=== PATIENT | male | born 1985 | race Caucasian/White ===

== ENCOUNTER 2021-12-02 18:51 | Outpatient (REF) | payer MEDICAID, SELFPAY ==
[2021-12-02 20:00] LABS: HCT 34.4 % (40.0-50.0); HGB 11.5 g/dL (13.5-17.5); MCH 30.3 pg (27.0-33.0); MCHC 33.4 % (32.0-36.0); MCV 90.5 fL (80-95); MPV 13.5 fL (8.0-11.0); Platelet Count 134 10^3/uL (130-400); RDW-SD 49.6 fL
[2021-12-02 20:38] LABS: Albumin 3.4 g/dL (3.4-5.0); Alkaline Phosphatase 206 U/L (46-116); Anion Gap 6.3 mmol/L (3-11); BUN 16 mg/dL (7-18); Bilirubin, Total 0.8 mg/dL (0.2-1.0); CO2 31.7 mmol/L (21.0-32.0); CREATININE 1.2 mg/dL (0.70-1.30); Calcium 8.5 mg/dL (8.5-10.1); Chloride 99 mmol/L (98-107); Glucose 148 mg/dL (74-106); Potassium 4.8 mmol/L (3.5-5.1); Sodium 137 mmol/L (136-145); Total Protein 6.7 g/dL (6.4-8.2)
[2021-12-02 21:40] LABS: ALT 222 U/L (16-63); AST 293 U/L (15-37)
== END 2021-12-02 18:52 | disposition home or self-care (01) ==
LOC: LBN 18:51
PROVIDERS: Visit Provider Nurse Practitioner Family
DX: F10.20 Alcohol dependence, uncomplicated (principal)
CPT/HCPCS: 80053; 85027

== ENCOUNTER 2021-12-20 18:02 | Emergency (ER) | payer BC, MEDICAID, SELFPAY ==
[2021-12-20 18:10] VITALS: BP 136/114; PULSE 111; RESP 14; TEMP 36.4; O2SAT 98
--- NOTE | 2021-12-20 18:44 | ED.GENADUL_ITS ---
Discharge Plan Disposition Patient Disposition: HOME Condition: Stable Discharge Details Clinical Impression: Post concussive syndrome Primary Care Provider: Unknown,Unknown ED Provider: Shannan Rivas Home Meds and New Rx's Prescriptions: Continued venlafaxine 150 mg Capsule,Extended Release 24hr 150 mg PO DAILY 0RF acamprosate 333 mg Tablet,Delayed Release (Dr/Ec) 666 mg PO TID 0RF buprenorphine-naloxone [Suboxone] 8-2 mg Film 1 film sublingual DAILY 0RF Discharge Instructions Instructions: Concussion (ED) Additional Instructions: Over 50 percent of patients report personality change, irritability, anxiety, and depression after mild TBI. They may find themselves intolerant of noise, emotional excitement, and crowds, and more susceptible to the effects of alcohol. Family members may report that the patient seems more abrupt, argumentative, stubborn, opinionated, or suspicious. Patients also report impaired memory and concentration; these may be corroborated by objective deficits on neuropsychological testing. In typical cases, these are most prominent immediately after the injury and resolve over the next weeks and months. A significant number of patients (15 to 20 percent) will develop symptoms meeting criteria for psychiatric disease. These include acute stress and p osttraumatic stress disorder (PTSD) as well as anxiety, panic disorder, and depression? Referrals: Unknown,Unknown [Primary Care Provider] - (call your primary care provider Wednesday for follow up appointment) Medical Decision Making patient presents for evaluation of reported behavioral/mood changes since falling on ice one week ago. he denies headache, visual changes, nausea, vomiting pain or other symptoms consistent with acute intracranial hemorrhage. His physical exam unremarkable. We discussed imaging which patient declines at this time. He would like a prescription to help control his emotions, which he reports as tearful and more loving/ He denies suicial or homicidal ideation. offered mental health evaluation, which patient declines at this time/ He would like to follow up with his pcp outpatient. He is stable for discharge for outpatient follow up. Medical Records Medical records reviewed: Yes I reviewed the patient's medical records. HPI General Date/Time Provider Initiated Documentation: 12/20/21 18:03 . Limitations to Documentation: no limitations . Information obtained by: patient . HPI Narrative: patient presents for evaluation of reported personality changes since a head injury he obtained at home one week ago after a mechanical fall in his driveway on ice. he stays he had no loss of consciousness, nausea or vomiting, visual changes. he states he was initially stunned and lied there for a minute but then got up. he states he recalls entire event. he has headache initially for a day or so but that resolved. he later noted that he was very emotional, he has tears at time of evaluation. he reports that he gave his notice a work yesterday due to his new emotional state. he denies difficulty sleeping, he denies suicidal or homicidal ideation. Related Data Home Medications Medication Instructions Recorded Confirmed acamprosate 333 mg tablet,delayed 666 mg PO TID 12/20/21 12/20/21 release buprenorphine 8 mg-naloxone 2 mg 1 film SUBLINGUAL DAILY 12/20/21 12/20/21 sublingual film (Suboxone) venlafaxine 150 mg 150 mg PO DAILY 12/20/21 12/20/21 capsule,extended release 24 hr Allergies Allergy/AdvReac Type Severity Reaction Status Date / Time No Known Allergies Allergy Unverified 12/20/21 18:13 General Stated Complaint: HeadInjury MANN: 3 Review of Systems All systems reviewed & are unremarkable except as noted in HPI and below Constitutional Constitutional: Denies body ache(s), Denies daytime sleepiness, Denies frequent falls, Denies headache(s), Denies lethargy, Denies poor appetite and Denies weakness Eyes Eyes: Denies loss of vision ENT Ears, Nose, Mouth, and Throat: Denies vertigo, Denies dizziness, Denies headache(s) and Denies disequilibrium Cardiovascular Cardiovascular: Denies chest pain, Denies syncope, Denies rapid heart rate and Denies dyspnea Respiratory Respiratory: Denies dyspnea Gastrointestinal Gastrointestinal: Denies nausea and Denies vomiting Musculoskeletal Musculoskeletal: Reports abnormal gait (states he now walks hunched over with wide gait since fall, ), Denies back pain, Denies arthralgias and Reports other Comments: demonstrates both wide stance and normal ambulation Neurologic Neurologic: Reports abnormal gait (states he now walks hunched over with wide gait since fall, ), Reports behavioral changes, Denies vertigo, Denies dizziness, Denies syncope, Denies frequent falls, Denies headache(s), Denies localized weakness, Denies loss of vision, Denies memory loss, Denies other visual disturbances, Denies convulsions, Denies seizure-like activity, Denies sensory deficit, Denies tremor(s), Denies disequilibrium and Denies weakness Psychiatric Psychiatric: Denies abnormal sleep pattern, Reports anxiety, Reports behavioral changes, Denies change in appetite, Reports difficulty concentrating, Denies memory loss, Reports mood swings, Denies homicidal ideation and Denies suicidal ideation PFSH All Active Problems (Updated 12/20/21 @ 18:45 by Shannan Rivas NP) Post concussive syndrome (Acute) Social History Smoking/Tobacco Use Status: Current every day Tobacco Type: e-cigarettes Smoking risk assessment performed?: Yes Alcohol Intake: current Alcohol Intake frequency: 3 or more drinks per day Alcohol type: beer and hard liquor Drug use: Current Sobriety Do you feel safe at home: Yes Exam Const General: cooperative, comfortable and acute distress mild (emotional) Nutritional Appearance: average body habitus Orientation: alert, awake and oriented x3 HENMT Head: normal to inspection, normocephalic and atraumatic Mouth: oral mucosae normal Eyes General: appearance normal, both eyes and all related structures Conjunctivae: conjunctivae normal Sclera: sclerae normal Cornea: corneas normal Pupils: PERRL EOM: EOM intact bilaterally and No nystagmus Neck Neck: normal visual inspection, full ROM and nontender Chest Chest: normal inspection of the chest Resp Effort & Inspection: normal respiratory effort Auscultation: clear to auscultation bilaterally Cardio Rate: regular rate Rhythm: regular rhythm GI Inspection: normal to inspection Back/Spine/Pelvis Back: No back tenderness Cervical Spine: normal cervical lordosis Thoracic/Lumbar Spine: thoracic and lumbar spine normal to inspection Neuro General: patient alert, patient awake, patient oriented x3, no focal motor deficits, CN's II-XI intact bilaterally and deep tendon reflexes 2+ bilaterally Cranial Nerves: PERRL, EOM intact bilaterally, no nystagmus, facial strength normal, able to rotate head bilaterally, able to elevate shoulders bilaterally and no nystagmus Cognition: normal cognition Gait: normal gait Motor: muscle tone normal throughout, strength 5/5 throughout and no pronator drift Sensory Exam: no sensory deficits noted Coordination: [id number] test normal, [id number] test normal, Romberg test normal, tandem gait normal and Does not sway with eyes open Extrem General: normal to inspection and full ROM Psych Appearance: grossly normal Mental Status: mental status grossly normal Mood: anxious mood Attitude: cooperative Insight: fair Judgment: fair Course Vital Signs Vital signs: Vital Signs Temperature 36.4 C L 12/20/21 18:10 Pulse 111 H 12/20/21 18:10 Respiratory Rate 14 12/20/21 18:10 Blood Pressure 136/114 H 12/20/21 18:10 Pulse Oximetry 98 12/20/21 18:10 Temperature 36.4 C L 12/20/21 18:10 Temperature Source Temporal Artery Scan 12/20/21 18:10 Pulse 111 H 12/20/21 18:10 Respiratory Rate 14 12/20/21 18:10 Respiratory Effort Non-Labored 12/20/21 18:18 Respiratory Depth Normal 12/20/21 18:18 Respiratory Pattern Normal 12/20/21 18:18 Blood Pressure 136/114 H 12/20/21 18:10 Blood Pressure Position Sitting 12/20/21 18:10 Pulse Oximetry 98 12/20/21 18:10 Oxygen Delivery Method Room Air 12/20/21 18:10 Oxygen Flow Rate 0 12/20/21 18:10 Pain Level 0 12/20/21 18:10 PAWSS Have you Been Recently Intoxicated or Drunk Within the Last 30 days?: Yes Have you Ever Experienced Previous Episodes of Alcohol Withdrawal?: No Have you ever Experienced Withdrawal Seizures?: No Have you ever Experienced Delirium Tremens(DT)s?: No Have you ever undergone Alcohol Rehabilitation Treatment (i.e, inpt ot outpatient treatment programs)?: Yes Have you ever Experienced Blackouts?: No Have you ever Combined Alcohol with other Downers within the last 90 days?: No Have you ever Combined Alcohol with any other Substance of Abuse during the last 90 days?: No Positive Blood Alcohol level on Presentation? [PCS.BAL]: No Evidence of Increased Autonomic Activity (i.e. HR>120, tremor, sweating, agitation, nausea)?: No Result: 2
== END 2021-12-20 19:00 | disposition home or self-care (01) ==
PROVIDERS: Emergency Provider Nurse Practitioner Acute Care
DX: S09.8XXA Other specified injuries of head, initial encounter (principal); F07.81 Postconcussional syndrome; W00.0XXA Fall on same level due to ice and snow, initial encounter; R46.89 Other symptoms and signs involving appearance and behavior
CPT/HCPCS: 99281; 99283

== ENCOUNTER 2022-07-01 16:33 | Outpatient (REF) | payer OTHER, MEDICAID, SELFPAY ==
[2022-07-01 21:20] LABS: HCT 37.8 % (40.0-50.0); HGB 12.7 g/dL (13.5-17.5); MCH 31.6 pg (27.0-33.0); MCHC 33.6 % (32.0-36.0); MCV 94 fL (80-95); MPV 11.9 fL (8.0-11.0); Platelet Count 247 10^3/uL (130-400); RBC 4.02 10^6/uL (4.36-5.78); RDW 13.5 % (11.8-14.1); RDW-SD 46.3 fL; WBC 3.92 10^3/uL (4.4-10.8)
[2022-07-01 21:27] LABS: ALT 78 U/L (16-63); AST 77 U/L (15-37); Albumin 4.3 g/dL (3.4-5.0); Alkaline Phosphatase 78 U/L (46-116); Anion Gap 6.3 mmol/L (3-11); BUN 13 mg/dL (7-18); Bilirubin, Total 0.4 mg/dL (0.2-1.0); CO2 33.7 mmol/L (21.0-32.0); CREATININE 1.1 mg/dL (0.70-1.30); Calcium 9.1 mg/dL (8.5-10.1); Calculated LDL 65 mg/dL (<100); Chloride 101 mmol/L (98-107); Cholesterol 208 mg/dL (<200); Estimated GFR 88.67 (mL/min/1.73m2); Ferritin 516 ng/mL (26-388); Glucose 107 mg/dL (74-106); HDL Cholesterol 86 mg/dL (40-60); Potassium 4.5 mmol/L (3.5-5.1); Sodium 141 mmol/L (136-145); Total Protein 7.5 g/dL (6.4-8.2); Triglyceride 287 mg/dL (<150)
[2022-07-03 09:56] LABS: Hepatitis A Antibody IgM Negative (Negative); Hepatitis B Core Antibody Negative (Negative); Hepatitis B surface Ag Negative (Negative); Hepatitis C Ab w Rflx HCV PCR Negative (Negative)
[2022-07-07 15:22] LABS: Codeine Negative ng/mL (Cutoff: 25); Dihydrocodeine Negative ng/mL (Cutoff: 25); Hydrocodone Negative ng/mL (Cutoff: 25); Hydromorphone Negative ng/mL (Cutoff: 25); Morphine Negative ng/mL (Cutoff: 25); Naloxone 1537 ng/mL (Cutoff: 25); Norhydrocodone Negative ng/mL (Cutoff: 25); Noroxycodone Negative ng/mL (Cutoff: 25); Noroxymorphone 119 ng/mL (Cutoff: 25); Opiates Interpretation Positive.
== END 2022-07-01 16:34 | disposition home or self-care (01) ==
LOC: NCHCN 16:33
PROVIDERS: Visit Provider Physician Assistant
DX: F11.99 Opioid use, unspecified with unspecified opioid-induced disorder (principal); D64.9 Anemia, unspecified; R79.89 Other specified abnormal findings of blood chemistry; F17.210 Nicotine dependence, cigarettes, uncomplicated; F41.8 Other specified anxiety disorders
CPT/HCPCS: 80053; 80061; 80361; 80362; 80365; 85027; 86704; 86709; 86803; 87340; 82728

== ENCOUNTER 2022-10-20 10:13 | Emergency (ER) | payer OTHER, SELFPAY ==
[2022-10-20 10:18] VITALS: BP 131/80; PULSE 101; RESP 20; TEMP 36.8; O2SAT 99
[2022-10-20 10:52] LABS: Abs Immature Grans 0.03 10^3/uL (0.0-0.06); Absolute Basophil Count 0.06 10^3/uL (0.0-0.2); Absolute Eosinophil Count 0.01 10^3/uL (0.0-0.7); Absolute Lymphocyte Count 0.88 10^3/uL (1.2-3.4); Absolute Neutrophil Count 5.63 10^3/uL (1.2-6.7); Basophils % 0.9; Eosinophils % 0.1; HCT 36.5 % (40.0-50.0); Immature Grans % 0.4; Lymphocytes % 12.6; MCH 29.9 pg (27.0-33.0); MCHC 35.6 % (32.0-36.0); MCV 84 fL (80-95); MPV 11.8 fL (8.0-11.0); Monocytes % 5.7; Neutrophils % 80.3; Platelet Count 173 10^3/uL (130-400); RBC 4.35 10^6/uL (4.36-5.78); RDW 13.2 % (11.8-14.1); RDW-SD 40.4 fL; WBC 7.01 10^3/uL (4.4-10.8)
[2022-10-20] MEDS: Droperidol 5 MG/2 ML VIAL 1.25 MG IVP (10:53)
[2022-10-20] MEDS: FAMOTIDINE 20 MG in Normal Saline 100 ML 400 MG IVPB (10:53)
[2022-10-20] MEDS: Normal Saline 1,000 ML 1000 ML IV (10:54)
--- NOTE | 2022-10-20 11:42 | ED.GENADUL_ITS ---
Discharge Plan Disposition Patient Disposition: Eloped Discharge Details Clinical Impression: Anxiety, Nausea & vomiting Primary Care Provider: Larry Garcia ED Provider: Aakash Lee Home Meds and New Rx's Prescriptions: No Action venlafaxine 150 mg Capsule,Extended Release 24hr 150 mg PO DAILY acamprosate 333 mg Tablet,Delayed Release (Dr/Ec) 666 mg PO TID buprenorphine-naloxone [Suboxone] 8-2 mg Film 1 film sublingual DAILY Discharge Data Discharge Date/Time-TO BE ENTERED AT DEPARTURE: 10/20/22 11:43 Medical Decision Making 37-year-old male with history of depression presents with chief complaint of anxiety. Patient notes over the past 1 month he has had fairly persistent anxiety with associated and daily nausea and vomiting. Patient also notes constipation over the past 4 weeks. He did use a glycerin suppository last night and subsequently had a small bowel movement. Patient states he had similar anxiety and GI symptoms after he had COVID months ago. He notes he tested positive again for COVID about 1 month ago these symptoms returned. Abdominal exam is benign. Patient does seem anxious and notes that he is having active nausea. Plan to treat with droperidol 1.25 mg IV and IV fluids. Given benign abdominal exam I think small bowel obstruction is unlikely but I will obtain abdominal x-ray series. Consider biliary disease and will check LFTs. Consider electrolyte abnormalities. I was notified by nursing the patient wished to leave that he was feeling quite anxious. I went to see the patient immediately and talked with him. I recommended that he stay for completion of diagnostic work-up. Patient noted that he felt constrained in the room. I did disconnect monitor and leads and open the door and attempt to make the room feel less secluding. Notified by nursing that the patient eloped. Patient did remove his IV prior to leaving. HPI General Date/Time Provider Initiated Documentation: 10/20/22 10:39 . HPI Narrative: 37-year-old male presents with chief point anxiety. Patient notes he has had anxiety for the past month with associated nausea and vomiting. Anxiety is severe. No modifiers. He also notes decreased bowel movement with constipation over the past few weeks. He did use a suppository last night and had a small bowel movement. Patient is concerned that this anxiety is related to recent COVID illness a few weeks ago. He states that he had COVID in the past months ago he had similar reaction. Denies drug use. Related Data Home Medications Medication Instructions Recorded Confirmed acamprosate 333 mg tablet,delayed 666 mg PO TID 12/20/21 10/20/22 release buprenorphine 8 mg-naloxone 2 mg 1 film sublingual DAILY 12/20/21 10/20/22 sublingual film (Suboxone) venlafaxine 150 mg 150 mg PO DAILY 12/20/21 10/20/22 capsule,extended release 24 hr Allergies Allergy/AdvReac Type Severity Reaction Status Date / Time No Known Allergies Allergy Unverified 10/20/22 10:23 General Stated Complaint: Abd Prob MANN: 3 Review of Systems All systems reviewed & are unremarkable except as noted in HPI and below Constitutional Constitutional: Denies fever(s) Gastrointestinal Gastrointestinal: Reports nausea and Reports vomiting Psychiatric Psychiatric: Reports anxiety PFSH All Active Problems (Updated 10/20/22 @ 20:24 by Aakash Lee MD) Anxiety (Chronic) Nausea & vomiting (Acute) Social History Smoking/Tobacco Use Status: Current every day Tobacco Type: e-cigarettes Smoking risk assessment performed?: Yes Alcohol Intake: current Alcohol Intake frequency: 3 or more drinks per day Alcohol type: beer and hard liquor Drug use: Current Sobriety Substance use type: does not use Do you feel safe at home: Yes Do you feel safe in your relationship?: Yes Exam Const General: acute distress and anxious Orientation: alert and awake HENMT Head: normocephalic and atraumatic Mouth: moist mucous membranes Eyes Conjunctivae: normal conjunctivae Sclera: normal sclerae EOM: EOM intact bilaterally Neck Neck: trachea midline and supple Resp Auscultation: clear to auscultation bilaterally, no rales, no rhonchi and no wheezes Cardio Rate: tachycardic Rhythm: regular rhythm GI Palpation: soft, not firm, no guarding, no masses, not rigid and nontender Auscultation: normal bowel sounds Skin General skin exam: no rashes or lesions noted Neuro General: patient alert, patient awake, patient oriented x3 and tone normal Extrem General: no edema Psych Appearance: grossly normal Mental Status: mental status grossly normal Speech and Movement: speech and movement normal Mood: anxious mood Affect: anxious affect Course Vital Signs Vital signs: Vital Signs Temperature 36.8 C 12/27/22 10:18 Pulse 101 H 10/20/22 10:18 Respiratory Rate 20 10/20/22 10:18 Blood Pressure 131/80 10/20/22 10:18 Pulse Oximetry 99 10/20/22 10:18 Temperature 36.8 C 10/20/22 10:18 Temperature Source Temporal Artery Scan 10/20/22 10:18 Pulse 101 H 10/20/22 10:18 Respiratory Rate 20 10/20/22 10:18 Respiratory Effort Non-Labored 10/20/22 10:36 Blood Pressure 131/80 10/20/22 10:18 Blood Pressure Position Sitting 10/20/22 10:18 Pulse Oximetry 99 10/20/22 10:18 Oxygen Delivery Method Room Air 10/20/22 10:18 Oxygen Flow Rate 0 10/20/22 10:18 Pain Level 4 10/20/22 10:38 Lab/Test Results Lab/Test Results: Laboratory Tests Range/Units 10/20/22 10/20/22 10:35 10:35 WBC (4.4-10.8) 10^3/uL 7.01 RBC (4.36-5.78) 10^6/uL 4.35 L Hgb (13.5-17.5) g/dL 13.0 L Hct (40.0-50.0) % 36.5 L MCV (80-95) fL 84 MCH (27.0-33.0) pg 29.9 MCHC (32.0-36.0) % 35.6 RDW (11.8-14.1) % 13.2 Plt Count (130-400) 10^3/uL 173 MPV (8.0-11.0) fL 11.8 H Immature Gran % 0.4 Neutrophils % 80.3 Lymphocytes % 12.6 Monocytes % 5.7 Eosinophils % 0.1 Basophils % 0.9 Nucleated RBC % (0.0-0.3) % 0.0 Absolute Neutrophils (1.2-6.7) 10^3/uL 5.63 Absolute Lymphocytes (1.2-3.4) 10^3/uL 0.88 L Absolute Monocytes (0.1-0.8) 10^3/uL 0.40 Absolute Eosinophils (0.0-0.7) 10^3/uL 0.01 Absolute Basophils (0.0-0.2) 10^3/uL 0.06 Sodium Cancelled Potassium Cancelled Chloride Cancelled Carbon Dioxide Cancelled Anion Gap Cancelled BUN Cancelled Creatinine Cancelled Est GFR (CKD-EPI 2020) Cancelled Glucose Cancelled Calcium Cancelled Magnesium Cancelled Total Bilirubin Cancelled AST Cancelled ALT Cancelled Alkaline Phosphatase Cancelled Troponin I Cancelled Total Protein Cancelled Albumin Cancelled PAWSS Have you Been Recently Intoxicated or Drunk Within the Last 30 days?: Yes Have you Ever Experienced Previous Episodes of Alcohol Withdrawal?: No Have you ever Experienced Withdrawal Seizures?: No Have you ever Experienced Delirium Tremens(DT)s?: No Have you ever undergone Alcohol Rehabilitation Treatment (i.e, inpt ot outpatient treatment programs)?: Yes Have you ever Experienced Blackouts?: Yes Have you ever Combined Alcohol with other Downers within the last 90 days?: No Have you ever Combined Alcohol with any other Substance of Abuse during the last 90 days?: No Evidence of Increased Autonomic Activity (i.e. HR>120, tremor, sweating, agitati on, nausea)?: No Result: 3
--- NOTE | 2022-10-20 11:45 | NUR.NOTE ---
Nursing Note: patient eloped and pulled out own IV. catheter sheath intact.
[2022-10-20 11:47] LABS: Alkaline Phosphatase 219 U/L (46-116); Anion Gap 8.5 mmol/L (3-11); BUN 15 mg/dL (7-18); Bilirubin, Total 1.2 mg/dL (0.2-1.0); CO2 31.5 mmol/L (21.0-32.0); CREATININE 1.2 mg/dL (0.70-1.30); Calcium 8.1 mg/dL (8.5-10.1); Chloride 96 mmol/L (98-107); Estimated GFR 79.38 (mL/min/1.73m2); Glucose 168 mg/dL (74-106); Magnesium 1.4 mg/dL (1.8-2.4); Potassium 3.8 mmol/L (3.5-5.1); Sodium 136 mmol/L (136-145); TSH (W/Ref FT4) 1.87 uIU/mL (0.36-3.74); Total Protein 6.6 g/dL (6.4-8.2); Troponin I < 50 ng/L (<or=60)
[2022-10-20 12:00] LABS: ALT 90 U/L (16-63); AST 259 U/L (15-37)
== END 2022-10-20 11:43 | disposition left against medical advice (07) ==
PROVIDERS: Emergency Provider Student in an Organized Health Care Education/Training Program; PCP Physician Assistant
DX: F41.9 Anxiety disorder, unspecified (principal); R11.2 Nausea with vomiting, unspecified
CPT/HCPCS: 36415; 80053; 96361; 96365; 96375; 99284; 83735; 84443; 84484; 85025; J1790

== ENCOUNTER 2022-11-04 16:32 | Outpatient (REF) | payer OTHER, MEDICAID, SELFPAY ==
[2022-11-10 10:16] LABS: EDDP-by GC-MS Negative ng/mL (Cutoff: 100); Methadone Interpretation Negative.; Methadone-by GC-MS Negative ng/mL (Cutoff: 100)
== END 2022-11-04 16:33 | disposition home or self-care (01) ==
LOC: NCHCN 16:32
PROVIDERS: PCP Physician Assistant; Visit Provider Physician Assistant
DX: F41.8 Other specified anxiety disorders (principal); F11.99 Opioid use, unspecified with unspecified opioid-induced disorder
CPT/HCPCS: 80358

== ENCOUNTER 2022-12-16 17:23 | Outpatient (REF) | payer OTHER, MEDICAID, SELFPAY ==
[2022-12-21 20:54] LABS: EDDP-by GC-MS Negative ng/mL (Cutoff: 100); Methadone Interpretation Negative.; Methadone-by GC-MS Negative ng/mL (Cutoff: 100)
== END 2022-12-16 17:24 | disposition home or self-care (01) ==
LOC: NCHCN 17:23
PROVIDERS: PCP Physician Assistant; Visit Provider Physician Assistant
DX: F11.99 Opioid use, unspecified with unspecified opioid-induced disorder (principal)
CPT/HCPCS: 80358

== ENCOUNTER → 2023-11-03 00:58 | Outpatient (CLI) | payer MEDICAID, SELFPAY ==
--- NOTE | 2023-11-03 | DI.US_ITS ---
Exam(s) US ABDOMEN LIMITED EXAM: US ABDOMEN LIMITED CLINICAL HISTORY: ALCOHOL DEPENDENCE F10.20 TECHNIQUE: Ultrasound abdomen performed using standard protocol. COMPARISON: No exams were available for comparison FINDINGS: PANCREAS: Normal where visualized. LIVER: There is diffuse increased echogenicity of the liver consistent with fatty infiltration. Hepa topetal flow in the Portal Vein. The liver measures in 19.3 cm length. GALLBLADDER: No evidence of cholelithiasis. No evidence of wall thickening. No pericholecystic fluid identified. BILIARY SYSTEM: Common bile duct measures < 7 mm. No intrahepatic biliary ductal dilation. SPENCER'S SIGN: Negative. RIGHT KIDNEY: Kidney is normal in size. No evidence of renal calculi. No evidence of hydronephrosis. No renal mass or cyst identified. ASCITES: None seen. IMPRESSION: 1. Fatty infiltration of the liver and hepatomegaly. 2. No evidence of cholelithiasis or biliary ductal dilatation. DATA REPOSITORY:
== END ==
PROVIDERS: PCP Physician Assistant; Visit Provider Physician Assistant
DX: K76.0 Fatty (change of) liver, not elsewhere classified (principal); R16.0 Hepatomegaly, not elsewhere classified; F10.20 Alcohol dependence, uncomplicated
CPT/HCPCS: 76705

== ENCOUNTER 2023-12-01 15:57 | Outpatient (REF) | payer OTHER, MEDICAID, SELFPAY ==
[2023-12-01 19:35] LABS: HGB 14.1 g/dL (13.5-17.5); MCH 31.1 pg (27.0-33.0); MCHC 33.6 % (32.0-36.0); MCV 93 fL (80-95); Platelet Count 239 10^3/uL (130-400); RBC 4.53 10^6/uL (4.36-5.78); RDW 12.4 % (11.8-14.1); RDW-SD 42.3 fL; WBC 8.75 10^3/uL (4.4-10.8)
[2023-12-01 19:48] LABS: ALT 113 U/L (16-63); AST 90 U/L (15-37); Albumin 4.4 g/dL (3.4-5.0); Alkaline Phosphatase 168 U/L (46-116); BUN 17 mg/dL (7-18); Bilirubin, Total 0.5 mg/dL (0.2-1.0); CREATININE 1.1 mg/dL (0.70-1.30); Calcium 9.9 mg/dL (8.5-10.1); Chloride 99 mmol/L (98-107); Estimated GFR 87.57 (mL/min/1.73m2); Glucose 118 mg/dL (74-106); Potassium 4.2 mmol/L (3.5-5.1); Sodium 141 mmol/L (136-145); Total Protein 8.1 g/dL (6.4-8.2)
[2023-12-01 19:56] LABS: Hemoglobin A1C 5.4 % (<5.7)
== END 2023-12-01 15:58 | disposition home or self-care (01) ==
LOC: NCHCN 15:57
PROVIDERS: PCP Physician Assistant; Visit Provider Physician Assistant
DX: K70.0 Alcoholic fatty liver (principal); R73.9 Hyperglycemia, unspecified
CPT/HCPCS: 80053; 85027; 83036

== ENCOUNTER 2024-05-05 10:32 | Emergency (ER) | payer MEDICAID, SELFPAY ==
[2024-05-05 10:35] VITALS: BP 141/89; PULSE 107; TEMP 36.4; O2SAT 98
--- OUTSIDE RECORDS SUMMARY | 2024-05-05 10:56 | XMS_ITS | Referral Summary ---
Author Organization [facility] Address [address] [place] [address] Care Team Providers Care Mechanical Engineering Lecturer Name Role Phone Unavailable Primary Care Provider Unavailabl e Social History Tobacco Use Types Packs/Day Years Used Date Smoking Tobacco: Never Assessed Sex and Gender Information Value Date Recorded Sex Assigned at Not on file Gender Identity Not on file Sexual Orientation Not on file Plan of Treatment Not on file
--- OUTSIDE RECORDS SUMMARY | 2024-05-05 10:56 | XMS_ITS | Encounter Summary ---
Author Organization [facility] Address [address] [place] [id number] Care Team Providers Care Biometric Screener Name Role Phone Unavailable Primary Care Provider Unavailabl e Encounter Details Date Type Department Care Team (Late st Contact Info) Description 07/02/2022 Lab Requisition [facility] & Laboratory Medicine - [facility] [address] [place] [address] Outr Resulting Lab, Provider Social History Tobacco Use Types Packs/Day Years Used Date Smoking Tobacco: Never Assessed Sex and Gender Information Value Date Recorded Sex Assigned at Not on file Gender Identity Not on file Sexual Orientation Not on file documented as of this encounter Plan of Treatment Not on file documented as of this encounter Procedures Procedure Name Priority Date/Time Associated Diagnosis Comments ACUTE HEPATITIS PROFILE Routine 07/01/2022 16:30 EDT documented in this encounter Results * ACUTE HEPATITIS PROFILE (07/01/2022 16:30 EDT) Hep B Surface Ag Negative Negative 07/03/2022 9:[address] [facility] Hep C Antibody Negative Negative 07/03/2022 9:[address] [facility] Hepatitis A Antibody, IgM Negative Negative 07/03/2022 9:[address] [facility] Comment:The results of this assay can be falsely lowered due to the consumption of Biotin. Hepatitis B Core Ab, Total Negative Negative 07/03/2022 9:[address] [facility] Blood VENOUS BLOOD / Unknown 07/01/2022 16:30 EDT 07/02/2022 18:06 EDT Provider Outr Resulting Lab CHEMISTRY & BLOOD GAS ORDERABLES [facility] [address] [place] [address] documented in this encounter Visit Diagnoses Not on filedocumented in this encounter
--- OUTSIDE RECORDS SUMMARY | 2024-05-05 10:56 | XMS_ITS | Clinical Summary ---
Author Organization [facility] Address [address] [place] [address] Care Team Providers Care Outreach Educator Name Role Phone Unavailable Primary Care Provider Unavailabl e Social History Tobacco Use Types Packs/Day Years Used Date Smoking Tobacco: Never Assessed Sex and Gender Information Value Date Recorded Sex Assigned at Not on file Gender Identity Not on file Sexual Orientation Not on file Plan of Treatment Health Maintenance Due Date Last Done Comments Hepatitis C Screen 1984 Hepatitis B Vaccine (1 of 3 - 19+ 3-dose series) 09/27 COVID-19 Vaccine (2022- season) 2023
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
[2024-05-05 11:56] VITALS: BP 141/89; PULSE 107; TEMP 36.4; O2SAT 98
--- NOTE | 2024-05-05 12:02 | NUR.NOTE ---
Nursing Note: Ortho aware, PT needs follow up on Wednesday to schedule surgery. Geetha, ED
== END 2024-05-05 11:51 | disposition home or self-care (01) ==
PROVIDERS: Emergency Provider Physician Assistant; PCP Physician Assistant
DX: S52.021A Displaced fracture of olecranon process without intraarticular extension of right ulna, initial encounter for closed fracture (principal); V86.56XA Driver of dirt bike or motor/cross bike injured in nontraffic accident, initial encounter; Y93.89 Activity, other specified; Y92.89 Other specified places as the place of occurrence of the external cause
CPT/HCPCS: 99283; 73080

== ENCOUNTER 2024-05-10 10:27 | Day surgery (SDC) | payer MEDICAID, SELFPAY ==
--- NOTE | 2024-05-09 14:32 | NUR.NOTE ---
Nursing Note: Pt. refuses to disclose medical history. Pt. was informed that he needed to have a ride home and somebody to stay with him post-operatively is a requirement. Pt. then stated what he was going to drive himself home, which he was informed was not an option when receiving anesthesia. Pt. then stated he would sleep in his car until he could drive, which he was also informed was not an option. He was also informed if he took RCT, he needed to have somebody ride home with him from the hospital in the same RCT vehicle and stay with him until the affects of anesthesia have worn off. Pt. was also informed if he did not have any of these options that he would have to be admitted to the med/surg floor until anes worn off and have a ride home. He also stated that his ride would drop him off and pick him up at the end of the day, pt. was informed that once discharged from anesthesia he could not wait in waiting room for ride that they needed to be here at time of discharge. Pt. stated understanding. When pt. asked about living arrangement: Pt. refused to answer: Pt. stated, [place]: Pt. informed as to why this question is asked that we make sure pts have a clean snf, heat, hot water and food to ensure proper healing and prevention from postoperative infection informed of conversation.
[2024-05-10] VITALS (37 sets, daily range): BP systolic 130–161; BP diastolic 76–123; PULSE 60–90; RESP 10–21; TEMP 36–37.2; O2SAT 93–100; BMI 26.9
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
[2024-05-10] MEDS: Acetaminophen 500 MG TAB 1000 MG PO (11:02)
[2024-05-10] MEDS: Celecoxib 200 MG CAP 400 MG PO (11:02)
[2024-05-10] MEDS: Lactated Ringers 1,000 ML 80 ML IV (11:19)
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
[2024-05-10] MEDS: ceFAZolin 2 GM/50 ML BAG IVPB (13:14)
[2024-05-10] MEDS: Bupivacaine 0.5% Pres-Free W/EPI 30 ML VIAL (14:17)
--- NOTE | 2024-05-10 14:30 | DI.RAD_ITS ---
Exam(s) XR ELBOW RT LIMITED EXAM: XR ELBOW RT LIMITED CLINICAL HISTORY: Fracture of right elbow. TECHNIQUE: 2D and realtime digital imaging was performed. COMPARISON: CR XR ELBOW RT COMPLETE from 05/05/2024 FINDINGS: Fluoroscopy was provided in the OR. Hard copy images show show placement of a screw through the olecranon for fracture fixation. The ali gnment appears anatomic. Please see procedure note for details. Fluoro time: 41.6seconds RADIATION DOSE DELIVERED: shraddha Garza=52.4 mGy
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
--- NOTE | 2024-05-10 15:26 | W.ANESPOSTOP ---
Postoperative Evaluation Date, Time and Location Date Performed: 05/10/24 Time Performed: 15:27 Patient Location: Day Surgery Unit Vital Signs Most Recent Imported Vital Signs: Most Recent Vital Signs Temp Pulse Resp BP Pulse Ox 37.0 C 62 17 150/102 H 98 05/10/24 15:16 05/10/24 15:16 05/10/24 15:16 05/10/24 15:16 05/10/24 15:16 Pain Score Most Recent Pain Score: Most Recent Pain Score Pain Level 0 05/10/24 10:44 Assessment Mental Status: Awake (Alert & Oriented to Patient Baseline) Airway and Respiratory Function: Patent airway with normal (patient baseline) respiratory exam Cardiovascular Function: Hemodynamically Stable Hydration Status: Adequately Hydrated Nausea & Vomiting: No Nausea or Vomiting Pain: Pain is tolerable per patient Peripheral Nerve Block: Patient did not receive a nerve block
[2024-05-10] MEDS: Normal Saline 10 ML VIAL IJ (15:34)
[2024-05-10] MEDS: HYDROmorphone 2 MG/ML SYR IVP ×3 (15:34→16:03)
== END 2024-05-10 17:26 | disposition home or self-care (01) ==
LOC: SUR 10:28
PROVIDERS: PCP Physician Assistant; Visit Provider Student in an Organized Health Care Education/Training Program
PROC: (CPT 24685; principal; 2024-05-10 13:15)
DX: S52.021A Displaced fracture of olecranon process without intraarticular extension of right ulna, initial encounter for closed fracture (principal); V29.888A Rider (driver) (passenger) of other motorcycle injured in other specified transport accidents, initial encounter
CPT/HCPCS: 24685; 76000; 73070; J0690; J1100; J1170; J2001; J2250; J2405; J2704; J3475

== ENCOUNTER 2024-05-18 08:56 | Emergency (ER) | payer MEDICAID, SELFPAY ==
[2024-05-18 08:57] VITALS: BP 162/89; PULSE 58; RESP 17; TEMP 36.7; O2SAT 100
[2024-05-18 09:01] VITALS: BP 162/89; PULSE 58; RESP 17; TEMP 36.7; O2SAT 100
--- NOTE | 2024-05-18 09:12 | ED.GENADUL_ITS ---
Discharge Plan Disposition Patient Disposition: Home Condition: Stable Discharge Details Clinical Impression: Cellulitis of arm, right Primary Care Provider: Larry Garcia ED Provider: Donald Bess Home Meds and New Rx's Prescriptions: New amoxicillin-pot clavulanate 875-125 mg tablet 1 tab PO BID Qty: 14 0RF Continued acetaminophen 500 mg tablet 1,000 mg PO TID Qty: 90 0RF ibuprofen 600 mg tablet 600 mg PO TID PRN (Reason: pain) Qty: 90 0RF venlafaxine 150 mg Capsule,Extended Release 24hr 187.5 mg PO DAILY buprenorphine-naloxone [Suboxone] 8-2 mg Film 1 film sublingual DAILY Discharge Instructions Additional Instructions: Take the Augmentin as prescribed. You can take 1000 mg of acetaminophen and 600 mg of ibuprofen every 6 hours as needed Applying ice can help with the swelling and try to keep your arm elevated is much as possible Follow-up as scheduled Dr. Mathews next week Return to the emergency department if you feel more ill or have new symptoms such as high fevers HPI General Mode of arrival: ambulatory . Date/Time Provider Initiated Documentation: 05/18/24 08:57 . Limitations to Documentation: no limitations . Information obtained by: patient . History of Present Illness 38 year old M presents to the emergency department with the chief complaint of right elbow swelling/redness, described as moderate, Patient started experiencing this day(s) (2) and it has been constant. No relieving factors improve symptom(s), No exacerbating factors reported . Patient notes denies fever/chills. Patient did receive the following treatments prior to arrival, none Related Data Home Medications ?Medication ?Instructions ?Recorded ?Confirmed buprenorphine 8 mg-naloxone 2 mg 1 film sublingual DAILY 12/20/21 05/18/24 sublingual film (Suboxone) venlafaxine 150 mg 187.5 mg PO DAILY 12/20/21 05/18/24 capsule,extended release 24 hr acetaminophen 500 mg tablet 1,000 mg (2 x 500 mg) PO TID #90 05/10/24 05/18/24 tabs ibuprofen 600 mg tablet 600 mg PO TID PRN pain #90 tabs 05/10/24 05/18/24 amoxicillin 875 mg-potassium 1 tab PO BID #14 tabs 05/18/24 clavulanate 125 mg tablet Previous Rx's ?Medication ?Instructions ?Recorded acetaminophen 500 mg tablet 1,000 mg (2 x 500 mg) PO TID #90 05/10/24 tabs ibuprofen 600 mg tablet 600 mg PO TID PRN pain #90 tabs 05/10/24 amoxicillin 875 mg-potassium 1 tab PO BID #14 tabs 05/18/24 clavulanate 125 mg tablet Allergies Allergy/AdvReac Type Severity Reaction Status Date / Time No Known Allergies Allergy Verified 05/18/24 09:01 General Stated Complaint: Cellulitis MANN: 3 Review of Systems All systems reviewed & are unremarkable except as noted in HPI and below Constitutional Constitutional: Denies chills, Denies fever(s) and Denies weakness Cardiovascular Cardiovascular: Denies chest pain and Denies dyspnea Respiratory Respiratory: Denies cough and Denies dyspnea Gastrointestinal Gastrointestinal: Denies abdominal pain, Denies nausea and Denies vomiting Integumentary/Breasts Skin/Breast: Reports rash Neurologic Neurologic: Denies weakness Exam Const General: no acute distress Orientation: alert HENMT Head: normal to inspection Ears: external ears normal General nose exam: external nose normal Mouth: moist mucous membranes Eyes General: appearance normal, both eyes and all related structures Neck Neck: normal visual inspection Resp Effort & Inspection: normal respiratory effort and able to speak in complete sentences Cardio Rate: regular rate Skin General skin exam: erythema Lesions: no lesions Neuro General: patient alert and patient oriented x3 Extrem General: capillary refill normal Psych Mental Status: mental status grossly normal Course Vital Signs Vital signs: Vital Signs Temperature 36.7 C 05/18/24 08:57 Pulse 58 L 05/18/24 08:57 Respiratory Rate 17 05/18/24 08:57 Blood Pressure 162/89 H 05/18/24 08:57 Pulse Oximetry 100 05/18/24 08:57 Temperature 36.7 C 05/18/24 09:01 Temperature Source Temporal Artery Scan 05/18/24 09:01 Pulse 58 L 05/18/24 09:01 Respiratory Rate 17 05/18/24 09:01 Respiratory Effort Normal 05/18/24 09:00 Blood Pressure 162/89 H 05/18/24 09:01 Blood Pressure Position Sitting 05/18/24 09:01 Pulse Oximetry 100 05/18/24 09:01 Oxygen Delivery Method Room Air 05/18/24 09:01 Oxygen Flow Rate 0 05/18/24 09:01 Pain Level 8 05/18/24 09:01 Lab/Test Results Lab/Test Results: 05/18/24 09:08 Blood Blood Culture - Pending 05/18/24 09:08 Blood Blood Culture - Pending Medical Decision Making 38 yo male who underwent Open reduction internal fixation with intramedullary screw of right olecranon fracture on 05/10 comes in with 2 days of increased pain and swelling. Denies any fevers. The right elbow is swollen has erythema approximately 4 cm extending from the surgical site infection, has limited range of motion due to pain. He has no drainage out of the surgical site. Suspect surgical site infection, will check a CBC, CMP, ESR, CRP and obtain x-rays. Will likely need Ortho consult. Patient CRP 11 otherwise unremarkable. X-ray unremarkable as well, patient stable. No changes in the redness. Discussed the case with Dr. Mathews recommends starting Augmentin and will follow-up as scheduled next week. Return precautions given. Differential Diagnosis Differential Diagnosis: post of infection, cellulitis Medical Records Medical records reviewed: Yes I reviewed the patient's medical records. Imaging Data Radiologic Study: Attestation: I personally reviewed and interpreted this imaging study as follows: Imaging: X-Ray My impression: no acute findings Lab Data Lab results reviewed: Yes I reviewed the patient's lab results. Quality:SDOH Health Related Social Needs: No Data to Display PFSH All Active Problems (Updated 05/18/24 @ 11:43 by Donald Bess MD) Cellulitis of arm, right (Acute) Closed fracture of right olecranon process (Acute 05/05/24) S/P ORIF: 05/10/2024 Surgical History (Updated 05/10/24 @ 10:56 by Yamilet Moore RN) H/O hernia repair Social History Smoking/Tobacco Use Status: Current every day Tobacco Type: e-cigarettes Smoking risk assessment performed?: Yes Alcohol Intake: current Alcohol Intake frequency: 3 or more drinks per day Alcohol type: beer and hard liquor Drug use: Current Sobriety Substance use type: does not use Do you feel safe at home: Yes Do you feel safe in your relationship?: Yes Additional Social history: Pt. refuses to answer: Pt. stated, I live [place] sewers: Pt. informed as to why this question is asked that we make sure pts have a clean prison, heat, hot water and food to ensure proper healing and prevention from postoperative infection PAWSS Have you Been Recently Intoxicated or Drunk Within the Last 30 days?: No Have you Ever Experienced Previous Episodes of Alcohol Withdrawal?: No Have you ever Experienced Withdrawal Seizures?: No Have you ever Experienced Delirium Tremens(DT)s?: No Have you ever undergone Alcohol Rehabilitation Treatment (i.e, inpt ot outpatient treatment programs)?: No Have you ever Experienced Blackouts?: No Have you ever Combined Alcohol with other Downers within the last 90 days?: No Have you ever Combined Alcohol with any other Substance of Abuse during the last 90 days?: No Result: 0
[2024-05-18 09:43] LABS: Abs Immature Grans 0.08 10^3/uL (0.0-0.06); Absolute Basophil Count 0.03 10^3/uL (0.0-0.2); Absolute Eosinophil Count 0.02 10^3/uL (0.0-0.7); Absolute Lymphocyte Count 0.74 10^3/uL (1.2-3.4); Absolute Monocyte Count 0.58 10^3/uL (0.1-0.8); Absolute Neutrophil Count 8.96 10^3/uL (1.2-6.7); Basophils % 0.3 %; Eosinophils % 0.2 %; HGB 12.8 g/dL (13.5-17.5); Immature Grans % 0.8 %; Lymphocytes % 7.1 %; MCH 32.7 pg (27.0-33.0); MCHC 33.7 % (32.0-36.0); MCV 97 fL (80-95); Monocytes % 5.6 %; Platelet Count 277 10^3/uL (130-400); RBC 3.91 10^6/uL (4.36-5.78); RDW 14.3 % (11.8-14.1); RDW-SD 50.4 fL; WBC 10.41 10^3/uL (4.4-10.8)
[2024-05-18 09:45] LABS: ESR 16 mm/hr (0-15)
[2024-05-18] MEDS: Ketorolac 15 MG/ML VIAL IVP (10:02)
[2024-05-18] MEDS: Normal Saline 1,000 ML 1000 ML IV (10:02)
[2024-05-18 10:05] LABS: ALT 72 U/L (16-63); AST 67 U/L (15-37); Albumin 3.9 g/dL (3.4-5.0); Alkaline Phosphatase 191 U/L (46-116); BUN 7 mg/dL (7-18); Bilirubin, Total 0.85 mg/dL (0.2-1.0); C-Reactive Protein 11.85 mg/dL (<or=0.5); CREATININE 0.8 mg/dL (0.70-1.30); Calcium 9.5 mg/dL (8.5-10.1); Chloride 101 mmol/L (98-107); Estimated GFR 115.45 (mL/min/1.73m2); Glucose 114 mg/dL (74-106); Magnesium 1.8 mg/dL (1.8-2.4); Potassium 3.9 mmol/L (3.5-5.1); Sodium 139 mmol/L (136-145); Total Protein 8.1 g/dL (6.4-8.2)
--- NOTE | 2024-05-18 10:55 | DI.RAD_ITS ---
Exam(s) XR ELBOW RT COMPLETE EXAM: XR ELBOW RT COMPLETE CLINICAL HISTORY: surgery last week, pain and swelling. TECHNIQUE: 2D digital imaging was performed of the left elbow. Four images were obtained. AP, late ral and oblique views were obtained. COMPARISON: CR XR ELBOW RT COMPLETE from 05/05/2024 FINDINGS: BONES: There is internal fixation of the patient's proximal ulnar fracture. Alignment appears anatom ic. No suspicious lucencies are seen in or about the orthopedic hardware. No bony destructive lesio n is seen. No new fractures identified. JOINTS: The elbow is normally aligned. SOFT TISSUE: There is soft tissue swelling of the elbow. IMPRESSION: Status post reduction and internal fixation of the proximal ulnar fracture. DATA REPOSITORY: RADIATION DOSE DELIVERED:
[2024-05-18] MEDS: MORPHine 4 MG/ML SYR IVP (11:27)
[2024-05-18] MEDS: ceFAZolin 2 GM/50 ML BAG IVPB (11:27)
[2024-05-18 11:50] VITALS: BP 137/68; PULSE 82; RESP 16; TEMP 36.9
== END 2024-05-18 12:05 | disposition home or self-care (01) ==
PROVIDERS: Emergency Provider Emergency Medicine; PCP Physician Assistant
DX: L76.82 Other postprocedural complications of skin and subcutaneous tissue (principal); L03.113 Cellulitis of right upper limb
CPT/HCPCS: 36415; 80053; 85652; 87040; 96361; 96374; 96375; 99284; 73080; 83735; 85025; 86140; 99283; J0690; J1885; J2270

== ENCOUNTER 2024-05-25 15:12 | Outpatient (CLI) | payer MEDICAID, SELFPAY ==
--- NOTE | 2024-05-25 15:38 | DI.RAD_ITS ---
Exam(s) XR ELBOW RT LIMITED EXAM: XR ELBOW RT LIMITED INDICATION: s/p surgery. COMPARISON: CR XR ELBOW RT COMPLETE from 05/18/2024 TECHNIQUE: 2D digital imaging was performed. Two views. FINDINGS: A screw remains in place through the electron for fracture fixation. The fracture line remains visib le. Posterior soft tissue swelling also remains present. DATA REPOSITORY: RADIATION DOSE DELIVERED:
== END 2024-05-25 15:13 | disposition home or self-care (01) ==
LOC: DIORS 15:13
PROVIDERS: PCP Physician Assistant; Visit Provider Physician Assistant
DX: S52.021A Displaced fracture of olecranon process without intraarticular extension of right ulna, initial encounter for closed fracture (principal)
CPT/HCPCS: 73070

== ENCOUNTER 2024-06-18 15:53 | Emergency (ER) | payer MEDICAID, SELFPAY ==
[2024-06-18 15:56] VITALS: BP 129/82; PULSE 73; RESP 15; TEMP 37.1; O2SAT 96
--- OUTSIDE RECORDS SUMMARY | 2024-06-18 16:21 | XMS_ITS | Clinical Summary ---
Author Organization [facility] Address [address] [place] [address] Care Team Providers Care Fish Salter Name Role Phone Unavailable Primary Care Provider [...]
--- OUTSIDE RECORDS SUMMARY | 2024-06-18 16:21 | XMS_ITS | Encounter Summary ---
Author Organization [facility] Address [address] [place] [id number] Care Team Providers Care Rigger Apprentice Name Role Phone Unavailable Primary Care Provider Unavailabl e Encounter Details Date Type Department Care Team (Late st Contact Info) Description 07/02/2022 Lab Requisition [facility] Pathology & Laboratory Medicine - [facility] [address] [place] [address] Outr Resulting Lab, Provider Social History Tobacco [...] Negative 07/03/2022 9:[address] [facility] Hep C Antibody Negative Negative 07/03/2022 9:[address] [facility] Hepatitis A Antibody, IgM Negative Negative 07/03/2022 9:[address] [facility] Comment:The results of this assay can be falsely lowered due to the consumption of Biotin. Hepatitis B Core Ab, Total Negative Negative 07/03/2022 9:[address] [facility] Blood VENOUS BLOOD / Unknown 07/01/2022 16:30 EDT 07/02/2022 18:06 EDT Provider Outr Resulting Lab CHEMISTRY & BLOOD GAS ORDERABLES [facility] [address] [place] [address] documented in this encounter Visit Diagnoses Not on filedocumented in this encounter
--- OUTSIDE RECORDS SUMMARY | 2024-06-18 16:21 | XMS_ITS | Referral Summary ---
Author Organization [facility] Address [address] [place] [address] Care Team Providers Care Crate Tier Name Role Phone Unavailable Primary Care Provider Unavailabl e Social History Tobacco Use Types Packs/Day Years Used Date Smoking Tobacco: Never Assessed Sex and Gender Information Value Date Recorded Sex Assigned at Not on file Gender Identity Not on file Sexual Orientation Not on file Plan of Treatment Not on file
--- NOTE | 2024-06-18 16:30 | DI.CT_ITS ---
Exam(s) CT UPPER EXTREMITY RT W EXAM: CT UPPER EXTREMITY RT W CLINICAL HISTORY: R elbow swelling/redness/draining (05/18/24 surgery TECHNIQUE: Imaging Protocol: Axial computed tomography images with coronal and sagittal reformatted images were created and reviewed. CONTRAST MATERIAL: Intravenous: Omnipaque 350 Contrast volume:structured data in ml Contrast route:I V - Oral: yes / no COMPARISON: CR XR ELBOW RT COMPLETE from 05/05/2024 FINDINGS: OSSEOUS: There is an ORIF screw across the olecranon fracture site. Screw appears to be in satisfactory position no obvious callus formation at this time. Radial head and neck are intact. Some degenerative changes are noted at the level of the capitellum. There is a elbow joint effusion with synovial thickening. SOFT TISSUES: Edema and subcutaneous fluid evident overlying the olecranon IMPRESSION: Postop changes ORIF olecranon fracture with fixation screw. No evidence of osseous fusion at this ti me. Elbow joint effusion with synovial thickening. May be postop but cannot exclude septic arthritis. There is skin thickening and mildly complex edema as well as an ill-defined fluid collection overlyin g the olecranon. Findings probably related to cellulitis. RADIATION DOSE DELIVERED: 563.2mGy.cm Total DLP DATA REPOSITORY: All CT scans at this facility are submitted to the National Radiology Data Registry (NRDR) Dose Index Registry (DIR) with the [employer] (ACR). RADIATION OPTIMIZATION: All CT scans at this facility use at least one of these dose optimization te chniques: automated exposure control; mA and/or kV adjustment per patient size (includes targeted exa ms where dose is matched to clinical indication); or iterative reconstruction.
--- NOTE | 2024-06-18 16:42 | W.ED.GENAD ---
Discharge Plan Disposition Patient Disposition: Home Discharge Details Clinical Impression: Cellulitis of right elbow Primary Care Provider: Larry Garcia ED Provider: Jennifer Eli Home Meds and New Rx's Prescriptions: New ciprofloxacin HCl 750 mg tablet 750 mg PO BID Qty: 14 0RF Continued acetaminophen 500 mg tablet 1,000 mg PO TID Qty: 90 0RF ibuprofen 600 mg tablet 600 mg PO TID PRN (Reason: pain) Qty: 90 0RF venlafaxine 150 mg Capsule,Extended Release 24hr 187.5 mg PO DAILY buprenorphine-naloxone [Suboxone] 8-2 mg Film 1 film sublingual DAILY Discharge Instructions Additional Instructions: Please call Dr. Mathews's office first thing in the morning to follow-up later this week. You are being prescribed ciprofloxacin to treat your elbow infection. Please take the full course as prescribed. You are to take 750 mg twice a day until advised to stop by Dr. Mathews. Keep your elbow clean and dry. Wash daily with antibacterial soap and water. You may apply ice as needed for discomfort. Return to emergency care if you develop new fever/chills, worsening swelling/redness/pain despite treatment, new numbness in your hand, or if you are very worried and need to be rechecked again immediately. Referrals: [facility] [Provider Group] Discharge Data Discharge Date/Time-TO BE ENTERED AT DEPARTURE: 06/18/24 18:16 HPI General Date/Time Provider Initiated Documentation: 06/18/24 15:56. HPI Narrative: Maurice is a 38-year-old male who presents to the emergency department today for evaluation of right elbow swelling/warmth/pain after failing to complete second course of antibiotics for cellulitis. He had surgical repair of fracture right olecranon process on 05/10/[address] Mathews. A few days later he swam in a swimming pool and developed cellulitis. He was treated with a 1 week course of Augmentin. He saw Dr. Mathews on 05/25/2024, prescribed one week of ciprofloxacin- he reports he only took 3 days worth. Says it has been healing well, but couple of days ago he noticed increasing swelling, pain. It had been consistently draining pus until today, when the wound closed up, with significant worsening in symptoms. He does have significant pain with any movement of his fingers or wrist, which is new since acute worsening of symptoms. He denies fever/chills, extremity weakness/paresthesias, nausea/vomiting, change in bowel or bladder function. He is on Suboxone, declines pain meds at this time. He did take Tylenol and ibuprofen approximately 2 hours prior to arrival. Denies history of antibiotic resistant infections or other significant past medical history. Physical exam remarkable for significant swelling/redness and warmth to right elbow. He does have a healed wound along the dorsal aspect of the elbow, no active drainage at this time. He does have decreased range of motion to fingers and hand due to discomfort with movement. Proximal forearm does appear swollen. Distal pulses intact. Sensation intact to fingers. VS reassuring, pt is afebrile with no tachycardia. History and presentation consistent with worsening cellulitis after incomplete treatment. Concern for abscess, osteomyelitis, or other acute complication. Clinical presentation today not consistent with sepsis based on SIRS criteria. I independently interpreted the following tests: CBC notable for leukocytosis, white cell count 14.19. Sed rate elevated at 41. CRP is decreased from previous, 2.90 today. CMP reassuring. While in the emergency department Maurice received clonazepam 0.5 mg p.o. for anxiety. He has been prescribed this in the past, tolerated it well. First dose of abx given in ED prior to discharge, as well as next two doses. Discussed case with Dr. Mathews who reviewed imaging and labs. As no abscess is visualized at this time, outpatient management with close follow-up is recommended. Will treat with ciprofloxacin 750 mg 3 times daily. Discussed plan of care with patient who is agreeable with plan, says he intends to follow-up with orthopedics as recommended. I did stress to him the importance of keeping this follow-up because of risk of loss of limb/serious systemic illness with improper treatment. Educated on red flags indicate need for return to emergency care. Related Data Home Medications ?Medication ?Instructions ?Recorded ?Confirmed buprenorphine 8 mg-naloxone 2 mg 1 film sublingual DAILY 12/20/21 06/18/24 sublingual film (Suboxone) venlafaxine 150 mg 187.5 mg PO DAILY 12/20/21 06/18/24 capsule,extended release 24 hr acetaminophen 500 mg tablet 1,000 mg (2 x 500 mg) PO TID #90 05/10/24 06/18/24 tabs ibuprofen 600 mg tablet 600 mg PO TID PRN pain #90 tabs 05/10/24 06/18/24 ciprofloxacin HCl 750 mg tablet 750 mg PO BID #14 tabs 06/18/24 Previous Rx's ?Medication ?Instructions ?Recorded acetaminophen 500 mg tablet 1,000 mg (2 x 500 mg) PO TID #90 05/10/24 tabs ibuprofen 600 mg tablet 600 mg PO TID PRN pain #90 tabs 05/10/24 ciprofloxacin HCl 750 mg tablet 750 mg PO BID #14 tabs 06/18/24 Allergies Allergy/AdvReac Type Severity Reaction Status Date / Time No Known Allergies Allergy Verified 05/25/24 14:43 General Stated Complaint: RashLesion MANN: 4 Review of Systems Narrative: see HPI Exam Const General: cooperative, comfortable, no acute distress, well developed, well groomed and anxious Nutritional Appearance: average body habitus Resp Effort & Inspection: normal respiratory effort and able to speak in complete sentences Extrem Right upper extremity: elbow/forearm Details: tenderness, swelling Location: of the olecranon (significant with warmth, redness) and of the proximal forearm, abnormal ROM Details: held in an abnormal fashion Details: in flexion, warmth, laceration (Surgical incision well-approximated with areas of healing granulation tissue. No drainage) and distal pulses intact; ROM limited (Elbow held in flexion, decreased ROM to wrist and hand due to pain w/ mvmt) Course Vital Signs Vital signs: Vital Signs Temperature 37.1 C 06/18/24 15:56 Pulse 73 06/18/24 15:56 Respiratory Rate 15 06/18/24 15:56 Blood Pressure 129/82 06/18/24 15:56 Pulse Oximetry 96 06/18/24 15:56 Temperature 37.1 C 06/18/24 15:56 Pulse 73 06/18/24 15:56 Respiratory Rate 15 06/18/24 15:56 Blood Pressure 129/82 06/18/24 15:56 Blood Pressure Position Sitting 06/18/24 15:56 Pulse Oximetry 96 06/18/24 15:56 Oxygen Delivery Method Room Air 06/18/24 15:56 Oxygen Flow Rate 0 06/18/24 15:56 Lab/Test Results Lab/Test Results: 06/18/24 16:36 Blood Blood Culture - Pending 06/18/24 16:36 Blood Blood Culture - Pending Medical Decision Making Imaging Data Radiologic Study: Radiologist's impression: FINDINGS: Bones/joints: Postoperative changes of an ORIF for treatment of an olecranon fracture with a fixation screw. No evidence for hardware loosening or displacement. Minimal endosteal bridging along the fracture without callus or significant osseous fusion. Flattening of the capitellum with subcortical cystic changes, suggesting posttraumatic changes superimposed on osteoarthritis. Moderate size joint effusion with synovial thickening. Soft tissues: Mild skin thickening and ill-defined, mildly complex subcutaneous edema and fluid is seen overlying the olecranon. Lymph nodes: A prominent epitrochlear lymph node is seen measuring 15 x 18 mm. IMPRESSION: 1. Postoperative changes of an ORIF for treatment of an olecranon fracture with a fixation screw. Minimal endosteal bridging without significant callus or solid osseous fusion at this time. 2. Moderate-sized joint effusion with synovial thickening. This nonspecific and could represent postoperative/post-traumatic inflammatory change. Septic arthritis could also give this appearance, in the correct clinical context. 3. Skin thickening and extensive, mildly complex edema and ill-defined fluid is seen overlying the olecranon, which may represent cellulitis. No mature, thick-walled abscess is seen at this time Quality:SDOH Health Related Social Needs: No Data to Display PFSH All Active Problems (Updated 06/18/24 @ 17:53 by Jennifer Mcnulty) Cellulitis of right elbow (Acute) Closed fracture of right olecranon process (Acute 05/05/24) S/P ORIF: 05/10/2024 Surgical History (Updated 05/10/24 @ 10:56 by Yamilet Moore RN) H/O hernia repair Social History Smoking/Tobacco Use Status: Current every day Tobacco Type: e-cigarettes Smoking risk assessment performed?: Yes Alcohol Intake: current Alcohol Intake frequency: 3 or more drinks per day Alcohol type: beer and hard liquor Drug use: Current Sobriety Substance use type: does not use Housing: house Do you feel safe at home: Yes Do you feel safe in your relationship?: Yes Additional Social history: Pt stated 'my lady dropped me off'.
[2024-06-18 17:11] LABS: Abs Immature Grans 0.06 10^3/uL (0.0-0.06); Absolute Basophil Count 0.07 10^3/uL (0.0-0.2); Absolute Lymphocyte Count 1.05 10^3/uL (1.2-3.4); Absolute Monocyte Count 1.38 10^3/uL (0.1-0.8); Absolute Neutrophil Count 11.58 10^3/uL (1.2-6.7); Basophils % 0.5 %; Eosinophils % 0.4 %; HCT 41.5 % (40.0-50.0); HGB 13.9 g/dL (13.5-17.5); Immature Grans % 0.4 %; Lymphocytes % 7.4 %; MCH 32.6 pg (27.0-33.0); MCHC 33.5 % (32.0-36.0); MCV 97 fL (80-95); MPV 9.4 fL (8.0-11.0); Monocytes % 9.7 %; Neutrophils % 81.6 %; Platelet Count 198 10^3/uL (130-400); RBC 4.26 10^6/uL (4.36-5.78); RDW 13.8 % (11.8-14.1); WBC 14.19 10^3/uL (4.4-10.8)
[2024-06-18 17:12] LABS: Absolute Eosinophil Count 0.06 10^3/uL (0.0-0.7); ESR 41 mm/hr (0-15)
[2024-06-18] MEDS: Omnipaque 350 MG/ML 100 ML BTL IJ (17:21)
[2024-06-18] MEDS: Normal Saline - Diluent 50 ML VIAL IJ (17:21)
[2024-06-18] MEDS: clonazePAM 0.5 MG TAB PO (17:21)
[2024-06-18 17:26] LABS: ALT 109 U/L (16-63); AST 99 U/L (15-37); Albumin 3.6 g/dL (3.4-5.0); Alkaline Phosphatase 203 U/L (46-116); BUN 4 mg/dL (7-18); Bilirubin, Total 0.55 mg/dL (0.2-1.0); CREATININE 0.7 mg/dL (0.70-1.30); Calcium 9.5 mg/dL (8.5-10.1); Chloride 98 mmol/L (98-107); Glucose 104 mg/dL (74-106); Potassium 3.6 mmol/L (3.5-5.1); Sodium 136 mmol/L (136-145); Total Protein 8.5 g/dL (6.4-8.2)
[2024-06-18] MEDS: Ciprofloxacin 250 MG TAB 750 MG PO (18:13)
[2024-06-18 18:14] VITALS: PULSE 67; RESP 18; TEMP 36.4; O2SAT 100
[2024-06-18] MEDS: Ciprofloxacin 500 MG TAB PO (18:14)
--- NOTE | 2024-06-18 19:14 | DI.VRAD_ITS ---
PROCEDURE INFORMATION: Exam: CT Right Upper Extremity With Contrast, Elbow Exam date and time: 06/18/2024 5:10 PM Age: 38 years old Clinical indication: Pain; Right; Prior surgery; Surgery date: 1-6 months; Patient HX: R elbow swelling/redness/draining (05/18/24 surgery) TECHNIQUE: Imaging protocol: Computed tomography of the right upper extremity with contrast. Exam focused on the elbow. COMPARISON: CR XR ELBOW RT LIMITED 05/25/2024 3:10 PM FINDINGS: Bones/joints: Postoperative changes of an ORIF for treatment of an olecranon fracture with a fixation screw. No evidence for hardware loosening or displacement. Minimal endosteal bridging along the fracture without callus or significant osseous fusion. Flattening of the capitellum with subcortical cystic changes, suggesting posttraumatic changes superimposed on osteoarthritis. Moderate size joint effusion with synovial thickening. Soft tissues: Mild skin thickening and ill-defined, mildly complex subcutaneous edema and fluid is seen overlying the olecranon. Lymph nodes: A prominent epitrochlear lymph node is seen measuring 15 x 18 mm. IMPRESSION: 1. Postoperative changes of an ORIF for treatment of an olecranon fracture with a fixation screw. Minimal endosteal bridging without significant callus or solid osseous fusion at this time. 2. Moderate-sized joint effusion with synovial thickening. This nonspecific and could represent post-operative/post-traumatic inflammatory change. Septic arthritis could also give this appearance, in the correct clinical context. 3. Skin thickening and extensive, mildly complex edema and ill-defined fluid is seen overlying the olecranon, which may represent cellulitis. No mature, thick-walled abscess is seen at this time. 4. If interest dictate be further assessed with MR imaging. Dictated and Authenticated by: Jovita Hinds MD. Ordering:JUANA Rodriguez MD
--- NOTE | 2024-06-19 13:31 | NUR.NOTE ---
Nursing Note: Preliminary Aerobic cultures came back positive for gram + cocci in clusters, was discharged home on cipro. Per Dr. Jaffe request patient was contacted via phone and requested to return to the ER for re-assessment and possibly more labs. Pt states he can maybe come in tomorrow, but he is feeling much better and reqeusting to speak to the provider who is requesting to re-evaluate him. Pt was transferred to MD via phone.
== END 2024-06-18 18:16 | disposition home or self-care (01) ==
PROVIDERS: Emergency Provider Nurse Practitioner Family; PCP Physician Assistant
DX: L03.113 Cellulitis of right upper limb (principal); F17.290 Nicotine dependence, other tobacco product, uncomplicated; Z98.890 Other specified postprocedural states
CPT/HCPCS: 36415; 80053; 85652; 87040; 87077; 99285; 73201; 85025; 86140; 87186; 99284; J3490

== ENCOUNTER 2024-06-20 10:55 | Inpatient (IN) | payer MEDICAID, SELFPAY ==
[2024-06-20] VITALS (24 sets, daily range): BP systolic 114–153; BP diastolic 73–114; PULSE 48–81; RESP 7–19; TEMP 35–36.7; O2SAT 92–100; BMI 26.6
--- OUTSIDE RECORDS SUMMARY | 2024-06-20 10:59 | XMS_ITS | Encounter Summary ---
Author Organization [facility] Address [address] [place] [id number] Care Team Providers Care Radio Host Name Role Phone Unavailable Primary Care Provider Unavailabl e Encounter Details Date Type Department Care Team (Late st Contact Info) Description 07/02/[address] [facility] Pathology & Laboratory Medicine - [facility] [address] [place] [address] Outr Resulting Lab, Provider Social History Tobacco [...] Surface Ag Negative Negative 07/03/2022 9:51 EDT [facility] Hep C Antibody Negative Negative 07/03/2022 9:51 EDT [facility] Hepatitis A Antibody, IgM Negative Negative 07/03/2022 9:51 EDT [facility] Comment:The results of this assay can be falsely lowered due to the consumption of Biotin. Hepatitis B Core Ab, Total Negative Negative 07/03/2022 9:51 EDT [facility] Blood VENOUS BLOOD / Unknown 07/01/2022 16:30 EDT 07/02/2022 18:06 EDT Provider Outr Resulting Lab CHEMISTRY & BLOOD GAS ORDERABLES [facility] [address] [place] [address] documented in this encounter Visit Diagnoses Not on filedocumented in this encounter
--- OUTSIDE RECORDS SUMMARY | 2024-06-20 10:59 | XMS_ITS | Referral Summary ---
Author Organization [facility] Address [address] [place] [address] Care Team Providers Care Ion Exchange Operator Name Role Phone Unavailable Primary Care Provider Unavailabl e Social History Tobacco Use Types Packs/Day Years Used Date Smoking Tobacco: Never Assessed Sex and Gender Information Value Date Recorded Sex Assigned at Not on file Gender Identity Not on file Sexual Orientation Not on file Plan of Treatment Not on file
--- OUTSIDE RECORDS SUMMARY | 2024-06-20 10:59 | XMS_ITS | Clinical Summary ---
Author Organization [facility] Address [address] [place] [address] Care Team Providers Care Cad Engineer Name Role Phone Unavailable Primary Care Provider [...]
--- NOTE | 2024-06-20 11:13 | ED.GENADUL_ITS ---
Discharge Plan Disposition Patient Disposition: Admit to [facility] Condition: Stable Discharge Details Chief Complaint: Recheck Clinical Impression: Infection of right elbow Primary Care Provider: Larry Garcia ED Provider: Donald Bess Home Meds and New Rx's Prescriptions: No Action acetaminophen 500 mg tablet 1,000 mg PO TID Qty: 90 0RF ibuprofen 600 mg tablet 600 mg PO TID PRN (Reason: pain) Qty: 90 0RF venlafaxine 150 mg Capsule,Extended Release 24hr 187.5 mg PO DAILY buprenorphine-naloxone [Suboxone] 8-2 mg Film 1 film sublingual DAILY ciprofloxacin HCl 750 mg tablet 750 mg PO BID Qty: 14 0RF HPI General Mode of arrival: ambulatory . Date/Time Provider Initiated Documentation: 06/20/24 11:01 . Limitations to Documentation: no limitations . Information obtained by: patient . History of Present Illness 38 year old M presents to the emergency department with the chief complaint of positive blood culture, described as moderate, Patient started experiencing this week(s) (5) and it has been constant. No relieving factors improve symptom(s), No exacerbating factors reported . Patient notes no other symptoms.. Patient did receive the following treatments prior to arrival, none Related Data Home Medications ?Medication ?Instructions ?Recorded ?Confirmed buprenorphine 8 mg-naloxone 2 mg 1 film sublingual DAILY 12/20/21 06/18/24 sublingual film (Suboxone) venlafaxine 150 mg 187.5 mg PO DAILY 12/20/21 06/18/24 capsule,extended release 24 hr acetaminophen 500 mg tablet 1,000 mg (2 x 500 mg) PO TID #90 05/10/24 06/18/24 tabs ibuprofen 600 mg tablet 600 mg PO TID PRN pain #90 tabs 05/10/24 06/18/24 ciprofloxacin HCl 750 mg tablet 750 mg PO BID #14 tabs 06/18/24 Previous Rx's ?Medication ?Instructions ?Recorded acetaminophen 500 mg tablet 1,000 mg (2 x 500 mg) PO TID #90 05/10/24 tabs ibuprofen 600 mg tablet 600 mg PO TID PRN pain #90 tabs 05/10/24 ciprofloxacin HCl 750 mg tablet 750 mg PO BID #14 tabs 06/18/24 Allergies Allergy/AdvReac Type Severity Reaction Status Date / Time No Known Allergies Allergy Verified 05/25/24 14:43 General Stated Complaint: Recheck MANN: 3 Review of Systems All systems reviewed & are unremarkable except as noted in HPI and below Constitutional Constitutional: Denies chills, Denies fever(s) and Denies weakness Cardiovascular Cardiovascular: Denies chest pain and Denies dyspnea Respiratory Respiratory: Denies cough and Denies dyspnea Gastrointestinal Gastrointestinal: Denies abdominal pain, Denies nausea and Denies vomiting Integumentary/Breasts Skin/Breast: Reports rash Neurologic Neurologic: Denies weakness Exam Const General: no acute distress Orientation: alert HENMT Head: normal to inspection Ears: external ears normal General nose exam: external nose normal Mouth: moist mucous membranes Eyes General: appearance normal, both eyes and all related structures Neck Neck: normal visual inspection Resp Effort & Inspection: normal respiratory effort and able to speak in complete sentences Cardio Rate: regular rate Skin General skin exam: elasticity normal Neuro General: patient alert and patient oriented x3 Extrem General: full ROM and capillary refill normal Psych Mental Status: mental status grossly normal Course Vital Signs Vital signs: Vital Signs Temperature 36.7 C 06/20/24 10:58 Pulse 81 06/20/24 10:58 Blood Pressure 131/86 06/20/24 10:58 Pulse Oximetry 96 06/20/24 10:58 Temperature 36.7 C 06/20/24 10:58 Temperature Source Oral 06/20/24 10:58 Pulse 81 06/20/24 10:58 Respiratory Effort Normal, Non-Labored 06/20/24 11:00 Blood Pressure 131/86 06/20/24 10:58 Blood Pressure Position Sitting 06/20/24 10:58 Pulse Oximetry 96 06/20/24 10:58 Oxygen Delivery Method Room Air 06/20/24 10:58 Oxygen Flow Rate 0 06/20/24 10:58 Pain Level 2 06/20/24 10:58 Lab/Test Results Lab/Test Results: 06/20/24 11:12 Blood Blood Culture - Pending 06/20/24 11:12 Blood Blood Culture - Pending Medical Decision Making 38-year-old male who had a olecranon fracture repaired several weeks ago and was put on antibiotics for wound infection which improved with antibiotics but then had recurrence several days ago and was seen over the weekend this past weekend and put on Cipro and a CT showing joint fluid but felt was likely just postop changes, comes in after one of his blood cultures taken on that day returned positive. He denies any fevers or chills. Is able to feels better since starting ciprofloxacin. He does have some drainage out of his wound and had some. Material when I examined it, the elbow is swollen, mildly warm, no signi ficant erythema. The blood culture could be a false positive but given the positive end of his elbow concern for possible continued infection, will recheck CBC, CMP inflammatory markers and consult orthopedics. Patient with no white count but does have elevated CRP and sed rate. I discussed the case with Dr. Mathews who will plan to admit and likely perform washout. Vancomycin and Zosyn ordered and patient updated and is agreeable with plan. Differential Diagnosis Differential Diagnosis: wound infection, septic joint Medical Records Medical records reviewed: Yes I reviewed the patient's medical records. Lab Data Lab results reviewed: Yes I reviewed the patient's lab results. Quality:SDOH Health Related Social Needs: Health related social needs inadequate housing PFSH All Active Problems (Updated 06/20/24 @ 12:25 by Donald Bess MD) Infection of right elbow (Acute) Cellulitis of right elbow (Acute) Closed fracture of right olecranon process (Acute 05/05/24) S/P ORIF: 05/10/2024 Surgical History (Updated 05/10/24 @ 10:56 by Yamilet Moore RN) H/O hernia repair Social History Smoking/Tobacco Use Status: Current every day Tobacco Type: e-cigarettes Smoking risk assessment performed?: Yes Alcohol Intake: current Alcohol Intake frequency: 3 or more drinks per day Alcohol type: beer and hard liquor Drug use: Current Sobriety Substance use type: does not use Housing: house Do you feel safe at home: Yes Do you feel safe in your relationship?: Yes Additional Social history: Pt stated 'my lady dropped me off'.
[2024-06-20 11:35] LABS: Abs Immature Grans 0.05 10^3/uL (0.0-0.06); Absolute Basophil Count 0.04 10^3/uL (0.0-0.2); Absolute Eosinophil Count 0.04 10^3/uL (0.0-0.7); Absolute Monocyte Count 0.97 10^3/uL (0.1-0.8); Absolute Neutrophil Count 7.61 10^3/uL (1.2-6.7); Basophils % 0.4 %; Eosinophils % 0.4 %; HGB 13.9 g/dL (13.5-17.5); Immature Grans % 0.5 %; MCH 32.5 pg (27.0-33.0); MCHC 33.1 % (32.0-36.0); MCV 98 fL (80-95); MPV 9.2 fL (8.0-11.0); Monocytes % 9.7 %; Platelet Count 234 10^3/uL (130-400); RBC 4.28 10^6/uL (4.36-5.78); RDW 14.3 % (11.8-14.1); RDW-SD 51.3 fL; WBC 10.01 10^3/uL (4.4-10.8)
[2024-06-20 11:37] LABS: ESR 60 mm/hr (0-15)
[2024-06-20 11:53] LABS: ALT 83 U/L (16-63); AST 67 U/L (15-37); Albumin 3.3 g/dL (3.4-5.0); Alkaline Phosphatase 190 U/L (46-116); Anion Gap 9.1 mmol/L (3-11); BUN 7 mg/dL (7-18); Bilirubin, Total 0.59 mg/dL (0.2-1.0); CO2 29.9 mmol/L (21.0-32.0); Calcium 9.6 mg/dL (8.5-10.1); Chloride 98 mmol/L (98-107); Estimated GFR 98.18 (mL/min/1.73m2); Glucose 102 mg/dL (74-106); Magnesium 1.6 mg/dL (1.8-2.4); Potassium 3.7 mmol/L (3.5-5.1); Sodium 137 mmol/L (136-145); Total Protein 8.6 g/dL (6.4-8.2)
[2024-06-20 12:15] LABS: Procalcitonin 0.6 ng/mL
[2024-06-20] MEDS: MAGNESIUM SULFATE 1 GM/100 ML BAG IVINF (12:17)
--- OUTSIDE RECORDS SUMMARY | 2024-06-20 13:06 | XMS_ITS | Clinical Summary ---
Author Organization [facility] Address [address] [place] [address] Care Team Providers Care Central Office Trouble Shooter Name Role Phone Unavailable Primary Care Provider [...]
--- OUTSIDE RECORDS SUMMARY | 2024-06-20 13:06 | XMS_ITS | Referral Summary ---
Author Organization [facility] Address [address] [place] [address] Care Team Providers Care Staff Training And Development Manager Name Role Phone Unavailable Primary Care Provider Unavailabl e Social History Tobacco Use Types Packs/Day Years Used Date Smoking Tobacco: Never Assessed Sex and Gender Information Value Date Recorded Sex Assigned at Not on file Gender Identity Not on file Sexual Orientation Not on file Plan of Treatment Not on file
--- OUTSIDE RECORDS SUMMARY | 2024-06-20 13:06 | XMS_ITS | Encounter Summary ---
Author Organization [facility] Address [address] [place] [id number] Care Team Providers Care Letterset Press Set Up Operator Name Role Phone Unavailable Primary Care Provider Unavailabl e Encounter Details Date Type Department Care Team (Late st Contact Info) Description 07/02/2022 Lab Requisition [facility] Pathology & Laboratory Medicine - [facility] [address] [place] [address] Outr Resulting Lab, Provider Social History Tobacco [...] Surface Ag Negative Negative 07/03/2022 9:51 EDT [facility] Hep C Antibody Negative Negative 07/03/2022 9:51 EDT [facility] Hepatitis A Antibody, IgM Negative Negative 07/03/2022 9:51 EDT [facility] Comment:The results of this assay can be falsely lowered due to the consumption of Biotin. Hepatitis B Core Ab, Total Negative Negative 07/03/2022 9:51 EDT [facility] Blood VENOUS BLOOD / Unknown 07/01/2022 16:30 EDT 07/02/2022 18:06 EDT Provider Outr Resulting Lab CHEMISTRY & BLOOD GAS ORDERABLES [facility] [address] [place] [address] documented in this encounter Visit Diagnoses Not on filedocumented in this encounter
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
[2024-06-20] MEDS: PIPERACILLIN/TAZO 4.5 GM in Normal Saline 100 ML IVPB (13:37)
[2024-06-20] MEDS: Normal Saline 1,000 ML 80 ML IV (13:38)
[2024-06-20] MEDS: oxyCODONE 5 MG TAB PO ×2 (13:38→17:55)
[2024-06-20] MEDS: Acetaminophen 500 MG TAB 1000 MG PO ×2 (13:39→20:06)
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
[2024-06-20] MEDS: Normal Saline 1,000 ML 150 ML IV (15:32)
[2024-06-20] MEDS: Bupivacaine 0.25% Pres-Free 30 ML VIAL (16:15)
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
--- NOTE | 2024-06-20 17:31 | W.ANESPOSTOP ---
Postoperative Evaluation Date, Time and Location Date Performed: 06/20/24 Time Performed: 17:31 Patient Location: PACU Vital Signs Most Recent Imported Vital Signs: Most Recent Vital Signs Temp Pulse Resp BP Pulse Ox 36.5 C 60 13 146/94 H 100 06/20/24 17:25 06/20/24 17:25 06/20/24 17:26 06/20/24 17:25 06/20/24 17:26 Pain Score Most Recent Pain Score: Most Recent Pain Score Pain Level 8 06/20/24 17:22 Assessment Mental Status: Awake (Alert & Oriented to Patient Baseline) Airway and Respiratory Function: Patent airway with normal (patient baseline) respiratory exam Cardiovascular Function: Hemodynamically Stable Hydration Status: Adequately Hydrated Nausea & Vomiting: No Nausea or Vomiting Pain: Pain is tolerable per patient Peripheral Nerve Block: Patient did not receive a nerve block
[2024-06-20] MEDS: diazePAM 5 MG TAB PO (17:54)
[2024-06-20] MEDS: VANCOMYCIN/WATER (PEG) 2 GM/400 ML BAG IV (18:17)
--- NOTE | 2024-06-20 18:57 | W.PC.ACHO ---
Registration Status: Primary Language: Preferred Language: ED Information & Data Chief Complaint Recheck 06/20/24 11:18 Triage Note patient here recently for 06/20/24 10:58 infected elbow. blood cultures came back positive. patient called to return for eval and further tx. (Last Updated 05/10/24 @ 10:56 by Yamilet Moore RN) H/O hernia repair Most Recent Vital Signs Temperature 36.7 C 06/20/24 10:58 Temperature Source Oral 06/20/24 10:58 Pulse 81 06/20/24 10:58 Respiratory Effort Normal, Non-Labored 06/20/24 11:00 Blood Pressure 131/86 06/20/24 10:58 Blood Pressure Position Sitting 06/20/24 10:58 Pulse Oximetry 96 06/20/24 10:58 Oxygen Delivery Method Room Air 06/20/24 10:58 Oxygen Flow Rate 0 06/20/24 10:58 Pain Level 2 06/20/24 10:58 Allergies No Known Allergies Allergy (Verified 05/25/24 14:43) Precautions Isolation Standard precaution 06/20/24 11:00 IV IV Catheter Type [Left Saline Lock Antecubital] IV Catheter Gauge [Left 18 Antecubital] Diet Orders Category Date Time Status Nothing Per Oral [DIET] Nutrition 06/20/24 Breakfast Active Diagnostics 06/20/24 Range/Units 11:25 WBC 10.01 (4.4-10.8) 10^3/uL RBC 4.28 L (4.36-5.78) 10^6/uL Hgb 13.9 (13.5-17.5) g/dL Hct 42.0 (40.0-50.0) % MCV 98 H (80-95) fL MCH 32.5 (27.0-33.0) pg MCHC 33.1 (32.0-36.0) % RDW 14.3 H (11.8-14.1) % Plt Count 234 (130-400) 10^3/uL MPV 9.2 (8.0-11.0) fL Immature Gran % 0.5 % Neutrophils % 76.0 % Lymphocytes % 13.0 % Monocytes % 9.7 % Eosinophils % 0.4 % Basophils % 0.4 % Nucleated RBC % 0.0 (0.0-0.3) % Absolute Neutrophils 7.61 H (1.2-6.7) 10^3/uL Absolute Lymphocytes 1.30 (1.2-3.4) 10^3/uL Absolute Monocytes 0.97 H (0.1-0.8) 10^3/uL Absolute Eosinophils 0.04 (0.0-0.7) 10^3/uL Absolute Basophils 0.04 (0.0-0.2) 10^3/uL ESR 60 H (0-15) mm/hr Sodium 137 (136-145) mmol/L Potassium 3.7 (3.5-5.1) mmol/L Chloride 98 (98-107) mmol/L Carbon Dioxide 29.9 (21.0-32.0) mmol/L Anion Gap 9.1 (3-11) mmol/L BUN 7 (7-18) mg/dL Creatinine 1.0 (0.70-1.30) mg/dL Est GFR (CKD-EPI 2020) 98.18 (mL/min/1.73m2) Glucose 102 (74-106) mg/dL Calcium 9.6 (8.5-10.1) mg/dL Magnesium 1.6 L (1.8-2.4) mg/dL Total Bilirubin 0.59 (0.2-1.0) mg/dL AST 67 H (15-37) U/L ALT 83 H (16-63) U/L Alkaline Phosphatase 190 H (46-116) U/L C-Reactive Protein 19.10 H (<or=0.5) mg/dL Total Protein 8.6 H (6.4-8.2) g/dL Albumin 3.3 L (3.4-5.0) g/dL Procalcitonin 0.6 ng/mL 06/20/24 12:31 Blood Culture - Pending Blood 06/20/24 11:25 Blood Culture - Pending Blood Intake and Output - 24 Hour Total 06/20/24 10:55 thru 06/20/24 10:58 Weight 74.843 kg Falls Risk Assessment History of Falls No History 06/20/24 11:00 Contributing Factors No Factors 06/20/24 11:00 Ambulatory Aids Independent 06/20/24 11:00 Tubes/Lines None 06/20/24 11:00 Gait Evaluation No gait disturbance 06/20/24 11:00 Cognition No cognitive impairment 06/20/24 11:00 Fall Total Score 0 06/20/24 11:00 Level of Risk Standard/Low Risk 06/20/24 11:00 v v v v v v v v v Sending and/or Receiving Nurses: Please use comment section below to note any information pertinent to the patient hand-off not included above. Information / Comments: right elbow fracture with infection not responding to oral antiobiotics Report received from: [facility]
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
[2024-06-20] MEDS: Venlafaxine 150 MG CAPCR PO (20:06)
[2024-06-20] MEDS: Venlafaxine 37.5 MG CAPCR PO (20:06)
[2024-06-20] MEDS: Ketorolac 15 MG/ML VIAL IVP (20:06)
[2024-06-20] MEDS: Buprenorphine/Naloxone 8 mg/2 mg FILM 0.5 EACH SL (20:07)
[2024-06-20] MEDS: Normal Saline Flush 10 ML SYR IVP (20:10)
[2024-06-20] MEDS: ceFAZolin 2 GM/50 ML BAG IVPB (21:07)
[2024-06-20 21:47] LABS: MRSA PCR Negative (Negative)
[2024-06-21] MEDS: Ketorolac 15 MG/ML VIAL IVP ×3 (01:14→20:37)
[2024-06-21] MEDS: Normal Saline Flush 10 ML SYR IVP ×4 (01:14→22:16)
[2024-06-21] MEDS: VANCOMYCIN/WATER (PEG) 750 MG/150 ML BAG 150 MG IV (01:14)
[2024-06-21] MEDS: ceFAZolin 2 GM/50 ML BAG IVPB ×3 (04:03→20:37)
[2024-06-21] MEDS: diazePAM 5 MG TAB PO ×2 (04:08→11:21)
[2024-06-21 06:39] LABS: HCT 36.7 % (40.0-50.0); HGB 11.9 g/dL (13.5-17.5); MCH 32.2 pg (27.0-33.0); MCHC 32.4 % (32.0-36.0); MCV 100 fL (80-95); MPV 9.3 fL (8.0-11.0); Platelet Count 241 10^3/uL (130-400); RBC 3.69 10^6/uL (4.36-5.78); RDW 13.9 % (11.8-14.1); RDW-SD 51.3 fL; WBC 9.26 10^3/uL (4.4-10.8)
[2024-06-21 07:02] LABS: ALT 63 U/L (16-63); AST 59 U/L (15-37); Albumin 2.7 g/dL (3.4-5.0); Alkaline Phosphatase 168 U/L (46-116); Anion Gap 6.9 mmol/L (3-11); BUN 10 mg/dL (7-18); Bilirubin, Total 0.34 mg/dL (0.2-1.0); CO2 29.1 mmol/L (21.0-32.0); Calcium 8.5 mg/dL (8.5-10.1); Chloride 103 mmol/L (98-107); Estimated GFR 98.18 (mL/min/1.73m2); Glucose 122 mg/dL (74-106); Potassium 4.1 mmol/L (3.5-5.1); Sodium 139 mmol/L (136-145); Total Protein 7.2 g/dL (6.4-8.2)
[2024-06-21 07:24] LABS: C-Reactive Protein 11.61 mg/dL (<or=0.5)
[2024-06-21] MEDS: Acetaminophen 500 MG TAB 1000 MG PO ×3 (07:30→20:39)
[2024-06-21] MEDS: oxyCODONE 5 MG TAB PO ×3 (07:31→16:35)
[2024-06-21] MEDS: Buprenorphine/Naloxone 8 mg/2 mg FILM 0.5 EACH SL ×2 (07:31→18:09)
[2024-06-21 08:07] VITALS: BP 127/89; PULSE 71; RESP 18; TEMP 36.4; O2SAT 98
--- NOTE | 2024-06-21 10:01 | INITIAL_ITS ---
Date of service: 06/21/24 Time of Service: 10:01 Care Management Initial Assmt Initial Assessment Reason for Hospitalization: right elbow infection Functional Status/Living Situation Patient Presentation: Adalberto was sitting up in bed when CM met with him. He was pleasant in manner and agreeable to conversation. When asked, Adalberto informed CM that he is here with an elbow infection and that he will need 2 weeks of IV antibiotics. His provider completed forms for home infusion but Adalberto has expressed a preference for coming to the Infusion Center. CM will communicate this to his provider. Adalberto lives in a single family home with his and 2 year old daughter. Adalberto is building the home himself and it currently does not have any power. He has a generator and they use batteries when needed. They have no running water but have propane for cooking and heat. Adalberto shared that they are really enjoying the lifestyle and that it is very economical. As they continue with the build, eventually they will have more amenities. 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 Town of Residence: [place] Resides with: Spouse ( Linda and daughter) Significant Other/Family: Out of area Employment Status: Employed (self employed captain airline pilot) Instrumental Activities of Daily Living (ADLs): Independent Medications Medication Management: No Issues/Barriers identified Advance Directives Advance Directives: Do you have an Advance Directive: N 12/20/21 18:06 AD On File at [facility]: N 12/20/21 18:06 Date Asked 05/18/24 05/18/24 09:02 AD Date Reviewed COLST On File at [facility] COLST Date Scanned Code Status Resuscitation Status Full Code Portal Pt does not currently have a portal and education provided: No Insurance Coverage/Financial Issues Insurance: Medicaid Care Team Visit Care Team Role Provider Type Larry Garcia Primary Care Provider NON-[facility] STAFF PHYSICIAN Donald Bess MD Emergency Provider [facility] STAFF PHYSICIAN Pasquale Mathews MD Admit Provider [facility] STAFF PHYSICIAN Attending Provider Discharge Potential Discharge Needs: PCP F/U Appt and Surgical F/U Appt (orthopedic surgeon) Anticipated Barriers to Discharge: Medical Status Patient/Family Education Needs: Review discharge instructions, discuss Ask Me Three Transportation: Private vehicle Plan: Anticipate Adalberto will be discharged home with no new services. He will need 2 we eks of IV antibiotics which he prefers to receive in the Infusion Center. He will follow up with his surgeon, PCP and plan of care and will drive himself home. CM will follow and continue to support discharge planning needs. PFSH All Active Problems Infection of right elbow (Acute) Cellulitis of right elbow (Acute) Closed fracture of right olecranon process (Acute 05/05/24) S/P ORIF: 05/10/2024 Surgical History H/O hernia repair Social History Smoking/Tobacco Use Status: Current every day Tobacco Type: e-cigarettes Smoking risk assessment performed?: Yes Alcohol Intake: current Alcohol Intake frequency: 3 or more drinks per day Alcohol type: beer and hard liquor Drug use: Current Sobriety Substance use type: does not use Housing: apartment Do you feel safe at home: Yes Do you feel safe in your relationship?: Yes Additional Social history: Pt stated 'my lady dropped me off'. SDOH(Care Management) Screening Will the Patient Participate in the Screening?: Yes Do you worry about having a steady place to live?: no Problems where you live: no known problems In the past 12 months, have you had to go without electric, gas, oil or water in your home?: no Have you or anyone in your house had to go without enough food to eat?: no Has lack of transportation kept you from medical appointments or from doing things needed for daily living?: no Has anyone in your support network made you feel unsafe for any reason?: no
--- NOTE | 2024-06-21 10:06 | PGE_ITS ---
Date of Service Date of service: 06/21/24 Time of Service: 09:50 Assessment and Plan Assessment and plan (1) Septic arthritis of elbow, right: Status: Acute Assessment and plan: Unfortunately, the infection penetrated the right elbow joint. It has now been irrigated and antibiotics have been started. Given the positive blood cultures and the infection of the joint this would need at least 2 weeks of parenteral antibiotics. The MRSA screen was negative and the initial blood culture results are MSSA. Therefore, I will discontinue the vancomycin and continue with cefaz yaima 2 g every 8 hours. This hopefully will be transition to ceftriaxone 2 g daily once we have finalized negative blood cultures and can have preliminary data from the elbow samples. I will place the order for a PICC line to be performed once the most recent blood cultures are negative. I will transition to ceftriaxone prior to discharge. Range of motion as tolerated although it will be painful for a while. (2) Closed fracture of right olecranon process: Status: Acute Assessment and plan: CT scan performed previously shows the fracture still well aligned. There may be some slight over compression of the fracture. There is no significant signs of healing of there also is no significant signs of failure. Screws well-fixed and therefore we will continue to treat this with suppressive antibiotics and allow the fracture to heal. (3) Infection of right elbow: Status: Acute Assessment and plan: Cellulitis and septic bursitis along with the septic arthritis. Treatment as above. Subjective Subjective Interval history since last seen: Adalberto reports to be doing okay. His pain is controlled. He has no fevers and no chills. His blood cultures from 2 days ago have now turned positive for MSSA. Cultures from the time of surgery has still no growth. Current blood cultures have no growth. Exam Narrative Exam Narrative: Sitting up in hospital bed. No acute distress. Alert and orient x 3. Right upper extremity is wrapped in dressing. Clean dry and intact. Mild swelling seen throughout the forearm and hand. Palpable radial pulse. Objective Last Vital Signs Temp 36.4 C L 06/21/24 08:07 Pulse 71 06/21/24 08:07 Resp 18 06/21/24 08:07 BP 127/89 06/21/24 08:07 Pulse Ox 98 06/21/24 08:07 Laboratory Results - last 24 hr 06/20/24 06/20/24 06/21/24 11:25 20:15 06:14 WBC 10.01 9.26 RBC 4.28 L 3.69 L Hgb 13.9 11.9 L D Hct 42.0 36.7 L MCV 98 H 100 H MCH 32.5 32.2 MCHC 33.1 32.4 RDW 14.3 H 13.9 Plt Count 234 241 MPV 9.2 9.3 Immature Gran % 0.5 Neutrophils % 76.0 Lymphocytes % 13.0 Monocytes % 9.7 Eosinophils % 0.4 Basophils % 0.4 Nucleated RBC % 0.0 Absolute Neutrophils 7.61 H Absolute Lymphocytes 1.30 Absolute Monocytes 0.97 H Absolute Eosinophils 0.04 Absolute Basophils 0.04 ESR 60 H Sodium 137 139 Potassium 3.7 4.1 Chloride 98 103 Carbon Dioxide 29.9 29.1 Anion Gap 9.1 6.9 BUN 7 10 Creatinine 1.0 1.0 Est GFR (CKD-EPI 2020) 98.18 98.18 Glucose 102 122 H Calcium 9.6 8.5 Magnesium 1.6 L Total Bilirubin 0.59 0.34 AST 67 H 59 H ALT 83 H 63 Alkaline Phosphatase 190 H 168 H C-Reactive Protein 19.10 H 11.61 H Total Protein 8.6 H 7.2 Albumin 3.3 L 2.7 L Procalcitonin 0.6 Random Vancomycin 27.0 MRSA (TEM-PCR) Negative Time Spent with Patient Time Spent with Patient: 25-34 minutes Time was spent: preparing to see the patient(eg.review tests), ordering medications,tests, procedures, referring, communicating with other health career resource specialist, indepentently interpreting results, counseling the patient and care coordination
[2024-06-21 15:06] VITALS: BP 115/83; PULSE 70; RESP 17; TEMP 36.5; O2SAT 95
[2024-06-21] MEDS: Venlafaxine 150 MG CAPCR PO (20:40)
[2024-06-21] MEDS: Venlafaxine 37.5 MG CAPCR PO (20:40)
[2024-06-21 22:30] VITALS: BP 119/87; PULSE 61; RESP 20; TEMP 36.1; O2SAT 98
[2024-06-22] MEDS: Ketorolac 15 MG/ML VIAL IVP ×3 (02:47→14:56)
[2024-06-22] MEDS: Normal Saline Flush 10 ML SYR IVP ×4 (02:48→15:07)
[2024-06-22] MEDS: ceFAZolin 2 GM/50 ML BAG IVPB ×2 (04:24→11:43)
[2024-06-22] MEDS: Acetaminophen 500 MG TAB 1000 MG PO ×2 (08:01→14:56)
[2024-06-22] MEDS: Buprenorphine/Naloxone 8 mg/2 mg FILM 0.5 EACH SL (08:06)
[2024-06-22 08:07] VITALS: BP 121/85; PULSE 62; RESP 17; TEMP 35.7; O2SAT 98
--- NOTE | 2024-06-22 09:51 | PDOC.CMPRO ---
Date of service: 06/22/24 Time of Service: 09:51 Care Management Progress Note Discharge Potential Discharge Needs: PCP F/U Appt and Surgical F/U Appt Anticipated Barriers to Discharge: None Identified Patient/Family Education Needs: Review discharge instructions, discuss Ask Me Three Transportation: Private vehicle Plan: Anticipate Adalberto will be discharged home with no new services. He will need 2 weeks of IV antibiotics which he prefers to receive in the Infusion Center. He will follow up with his surgeon, PCP and plan of care and will drive himself home. CM will follow and continue to support discharge planning needs. SDOH(Care Management) Screening Will the Patient Participate in the Screening?: Yes Do you worry about having a steady place to live?: no Problems where you live: no known problems In the past 12 months, have you had to go without electric, gas, oil or water in your home?: no Have you or anyone in your house had to go without enough food to eat?: no Has lack of transportation kept you from medical appointments or from doing things needed for daily living?: no Has anyone in your support network made you feel unsafe for any reason?: no Health Related Social Needs Health related social needs: inadequate housing(Z59.1)
--- NOTE | 2024-06-22 13:02 | DSE_ITS ---
Date of service: 06/22/24 Time of Service: 13:03 DS: Diagnosis Discharge Diagnosis (1) Septic arthritis of elbow, right: Status: Acute (2) Closed fracture of right olecranon process: Status: Acute (3) Infection of right elbow: Status: Acute Discharge Plan Disposition Patient Disposition: Home Condition: Improving Discharge Details Reason For Visit: Right elbow infection Admit Date/Time: 06/20/24 12:20 Admit Provider: Pasquale Mathews Attending Provider: Pasquale Mathews Primary Care Provider: Larry Garcia Hospital Course Hospital Course: Maurice is a 38-year-old male who is admitted from the emergency department for an insect to right elbow. This is thought to be a cellulitis with local abscess from previous injury and surgery. However, at the time of surgery on hospital day #1, he was found to have a septic arthritis. He had previously had positive blood cultures for Staph aureus. Cultures from the elbow remain negative but his blood cultures were positive for MSSA. He had a negative MRSA screen. He felt improvement with pain and with range of motion after the surgery. He does was deemed safe to discharge to home with a 2-week course of parenteral ceftriaxone followed by 4 weeks of oral antibiotics. Home Meds and New Rx's Prescriptions: New diazepam 5 mg Tablet 5 mg PO TID PRN PRNQty: 15 0RF Continued venlafaxine 37.5 mg capsule,extended release 24hr 37.5 mg PO DAILY Patient Comments: TAKE ONE CAPSULE BY MOUTH EVERY MORNING COMBINE WITH 150MG DOSE FOR TOTAL OF 187.5MG DAILY clonazepam 0.5 mg tablet Patient Comments: TAKE ONE TABLET BY MOUTH THREE TIMES A DAY FOR TWO DAYS AND THEN TWO TIMES A DAY FOR THREE DAYS AND THEN ONCE DAILY FOR 7 DAYS acetaminophen 500 mg tablet 1,000 mg PO TID Qty: 90 0RF ibuprofen 600 mg tablet 600 mg PO TID PRN (Reason: pain) Qty: 90 0RF venlafaxine 150 mg Capsule,Extended Release 24hr 187.5 mg PO DAILY buprenorphine-naloxone [Suboxone] 8-2 mg Film 1 film sublingual DAILY Discontinued oxycodone 10 mg tablet Patient Comments: 10 mg orally every 4 hours As Needed for pain, Max Daily Dose: 6 tabs ciprofloxacin HCl 750 mg tablet 750 mg PO BID Qty: 14 0RF Discharge Instructions Additional Instructions: Dressing: You should keep the elbow and dressed. I recommend changing every 1 to 2 days. You will leave the yellow material on top of the wound which is Xeroform. Will cover this with gauze, ABD pad, Kerlix gauze wrap, and then an Flynn wrap. Give any questions about the wound or the dressing, please contact Dr. Mathews's office at [phone]. Activity: You may move the elbow as tolerated. I would encourage gentle motion of the elbow. Try to avoid direct pressure over the backside of the elbow. Medications: -You should take ibuprofen 600 mg up to 3 times daily as well as acetaminophen up to 1000 mg 3 times daily as needed for baseline pain control. - You have been prescribed diazepam for muscle spasms and pain. - You will be taking ceftriaxone 2 g daily for IV antibiotic treatment for 2 weeks. After that we will switch over to ciprofloxacin 750 mg twice daily. Follow-up: 10 days Referrals: Pasquale Mathews MD [ [facility] STAFF PHYSICIAN] - Activity:: Activity as Tolerated Equipment/Supplies:: No Equipment Needed Diet:: As Tolerated Discharge Orders Discharge Orders: Discharge Order (Routine); Ordered 06/22/24 Ordered By: Pasquale Mathews DS: Summary Time Spent with Patient providing and/or coordinating discharge services: Greater than 30 minutes Status at Discharge Functional status at discharge: independent ambulation Overall status at discharge: patient is progressing back to baseline Mental Status: mental status grossly normal Speech and Movement: speech and movement normal Mood: congruent mood Affect: normal affect Quality:SDOH Health Related Social Needs: Health related social needs inadequate housing Exam Narrative Exam Narrative: Sitting up in the bed. No acute distress. Right upper extremity shows well-approximated incision. There are some ecchymosis and some dried blood on the drainage but no active purulent discharge. Swelling has come down significantly. The elbow was redressed with gauze, ABD, Kerlix and Flynn wrap. There is some swelling in the forearm. No significant pain with range of motion of the elbow from 30 to 9 degrees. Psych Mental Status: mental status grossly normal Speech and Movement: speech and movement normal Mood: congruent mood Affect: normal affect DS: Data Vitals/I&O Vitals and I&O: Vital Signs Temperature 35.7 C L 06/22/24 08:07 Temperature Source Temporal Artery Scan 06/22/24 08:07 Pulse 62 06/22/24 08:07 Pulse Rhythm Regular 06/22/24 04:00 Pulse 58 L 06/20/24 17:26 Respiratory Rate 17 06/22/24 08:07 Respiratory Effort Normal, Non-Labored 06/22/24 04:00 Respiratory Depth Normal 06/22/24 04:00 Respiratory Pattern Normal 06/22/24 04:00 Blood Pressure 121/85 06/22/24 08:07 Blood Pressure Mean 108 06/20/24 17:25 Blood Pressure Position Sitting 06/20/24 10:58 Pulse Oximetry 98 06/22/24 08:07 Respiratory End-tidal CO2 44 06/20/24 17:26 Oxygen Delivery Method Room Air 06/22/24 08:07 Oxygen Flow Rate 0 06/22/24 08:07 Pain Level 0 06/22/24 08:07 Intake & Output 06/21/24 06/22/24 06/22/24 23:59 11:59 23:59 Intake Total 1580 / 1680 50 / 50 Balance 1580 / 1680 50 / 50 Intake: IV 1100 / 1200 50 / 50 Oral 480 / 480 Other: Urine Color Pale Yellow Yellow Urine Appearance Clear Clear Urine Odor Strong Comment pT stated that it smelled like sulfur Voiding Methods Toilet Data Completed and Pending Labs on day of discharge: 06/20/24 16:00 Arm - Right Anaerobic Culture - Pending Preliminary micro results at discharge 06/20/24 16:00 Surgical Culture - Preliminary Arm - Right 06/20/24 16:00 Body Fluid Culture - Preliminary Synovial - Right Joint 06/20/24 12:31 Blood Culture - Preliminary Blood NO GROWTH 24 HOURS 06/20/24 11:25 Blood Culture - Preliminary Blood NO GROWTH 24 HOURS 06/20/24 16:00 Anaerobic Culture - Pending Arm - Right PFSH All Active Problems Septic arthritis of elbow, right (Acute) Infection of right elbow (Acute) Cellulitis of right elbow (Acute) Closed fracture of right olecranon process (Acute 05/05/24) S/P ORIF: 05/10/2024 Surgical History H/O hernia repair Social History Smoking/Tobacco Use Status: Current every day Tobacco Type: e-cigarettes Smoking risk assessment performed?: Yes Alcohol Intake: current Alcohol Intake frequency: 3 or more drinks per day Alcohol type: beer and hard liquor Drug use: Current Sobriety Substance use type: does not use Housing: apartment Do you feel safe at home: Yes Do you feel safe in your relationship?: Yes Additional Social history: Pt stated 'my lady dropped me off'. Time Spent with Patient Time Spent with Patient: <45 minutes Time was spent: preparing to see the patient(eg.review tests), obtaining and/or reviewing separately otained hiistory, ordering medications,tests, procedures, referring, communicating with other health family day carer, counseling the patient and care coordination
[2024-06-22 13:52] LABS: Abs Immature Grans 0.03 10^3/uL (0.0-0.06); Absolute Basophil Count 0.06 10^3/uL (0.0-0.2); Absolute Eosinophil Count 0.09 10^3/uL (0.0-0.7); Absolute Lymphocyte Count 1.88 10^3/uL (1.2-3.4); Absolute Monocyte Count 0.46 10^3/uL (0.1-0.8); Absolute Neutrophil Count 5.07 10^3/uL (1.2-6.7); Basophils % 0.8 %; Eosinophils % 1.2 %; HCT 35.4 % (40.0-50.0); HGB 11.4 g/dL (13.5-17.5); Immature Grans % 0.4 %; Lymphocytes % 24.8 %; MCH 32.3 pg (27.0-33.0); MCHC 32.2 % (32.0-36.0); MCV 100 fL (80-95); MPV 8.8 fL (8.0-11.0); Monocytes % 6.1 %; Neutrophils % 66.7 %; Platelet Count 237 10^3/uL (130-400); RBC 3.53 10^6/uL (4.36-5.78); RDW 14.4 % (11.8-14.1); RDW-SD 52.8 fL; WBC 7.59 10^3/uL (4.4-10.8)
[2024-06-22 14:07] LABS: Anion Gap 4.2 mmol/L (3-11); BUN 12 mg/dL (7-18); CO2 29.8 mmol/L (21.0-32.0); CREATININE 1.1 mg/dL (0.70-1.30); Calcium 8.9 mg/dL (8.5-10.1); Chloride 104 mmol/L (98-107); Estimated GFR 87.57 (mL/min/1.73m2); Glucose 104 mg/dL (74-106); Potassium 3.8 mmol/L (3.5-5.1); Sodium 138 mmol/L (136-145)
[2024-06-22 14:09] LABS: C-Reactive Protein 3.61 mg/dL (<or=0.5)
[2024-06-22] MEDS: cefTRIAXone 2 GM/50 ML BAG IVPB (15:07)
[2024-06-22 15:51] VITALS: BP 119/87; PULSE 72; RESP 18; TEMP 36.1; O2SAT 98
--- NOTE | 2024-06-22 16:20 | NUR.NOTE ---
Pt discharged to home via driving himself; dc education reviewed, emphasis on f/u appts and medications, pt verbalized understanding of dc plan. Peripheral IV lock removed, tip intact; Pt discharged with Midline, dressing clean dry and intact; all belongings sent home with pt including medications held in pharmacy.
--- NOTE | 2024-06-22 16:49 | PDOC.CMDIS ---
Date of service: 06/22/24 Time of Service: 16:49 Care Management Discharge Plan Reason for Hospitalization: right elbow infection Discharge Plan: Adalberto will be discharged home with no new services. He requires another 2 weeks of IV antibiotics and has chosen to come to the Infusion Center daily to receive his treatment. Adalberto will follow up with Orthopedics, his PCP, and plan of care and transport with his . Patient/Family Education Needs: Review of discharge instructions, limitations, follow up plan, discuss Ask Me Three Services Needed at Discharge: Infusion Therapy (IV Ceftriaxone for 2 weeks) SDOH Health Related Social Needs: Health related social needs inadequate housing Health related social needs: inadequate housing(Z59.1)
== END 2024-06-22 16:11 | disposition home or self-care (01) | DRG 507 ==
LOC: ER 12:32 → MS 13:04
PROVIDERS: Admitting Provider Student in an Organized Health Care Education/Training Program; Emergency Provider Emergency Medicine; PCP Physician Assistant; Visit Provider Student in an Organized Health Care Education/Training Program
PROC: 0R9L0ZZ Drainage of Right Elbow Joint, Open Approach (ICD-10-PCS; CPT 24000; principal; 2024-06-20 16:15)
DX: M00.821 Arthritis due to other bacteria, right elbow (principal); L03.113 Cellulitis of right upper limb; R78.81 Bacteremia; V29.99XD Rider (driver) (passenger) of other motorcycle injured in unspecified traffic accident, subsequent encounter; S52.021D Displaced fracture of olecranon process without intraarticular extension of right ulna, subsequent encounter for closed fracture with routine healing; F17.290 Nicotine dependence, other tobacco product, uncomplicated; B95.61 Methicillin susceptible Staphylococcus aureus infection as the cause of diseases classified elsewhere
CPT/HCPCS: 24000; 00123; 36410; 36415; 80048; 80053; 84145; 85027; 85652; 87040; 87077; 87641; 96365; 99284; 80202; 83735; 85025; 86140; 87070; 87075; 87186; 87205; J0665; J0690; J0696; J1100; J1885; J2001; J2250; J2405; J2543; J2704; J3372; J3475

== ENCOUNTER 2024-06-25 00:18 | Outpatient (RCR) | payer MEDICAID, SELFPAY ==
--- OUTSIDE RECORDS SUMMARY | 2024-06-23 00:57 | XMS_ITS | Encounter Summary ---
Author Organization [facility] Address [address] [place] [id number] Care Team Providers Care Ship'S Electronic Warfare Officer Name Role Phone Unavailable Primary Care Provider Unavailabl e Encounter Details Date Type Department Care Team (Late st Contact Info) Description 07/02/2022 Lab Requisition [facility] Pathology & Laboratory Medicine - [facility] [address] [place] [address] Outr Resulting Lab, Provider Social History Tobacco [...] Negative Negative 07/03/2022 9:51 EDT [facility] Hep C Antibody Negative Negative 07/03/2022 9:51 EDT [facility] Hepatitis A Antibody, IgM Negative Negative 07/03/2022 9:51 EDT [facility] Comment:The results of this assay can be falsely lowered due to the consumption of Biotin. Hepatitis B Core Ab, Total Negative Negative 07/03/2022 9:51 EDT [facility] Blood VENOUS BLOOD / Unknown 07/01/2022 16:30 EDT 07/02/2022 18:06 EDT Provider Outr Resulting Lab CHEMISTRY & BLOOD GAS ORDERABLES [facility] [address] [place] [address] documented in this encounter Visit Diagnoses Not on filedocumented in this encounter
--- OUTSIDE RECORDS SUMMARY | 2024-06-23 00:57 | XMS_ITS | Referral Summary ---
Author Organization [facility] Address [address] [place] [address] Care Team Providers Care Carpenter Helper Name Role Phone Unavailable Primary Care Provider Unavailabl e Social History Tobacco Use Types Packs/Day Years Used Date Smoking Tobacco: Never Assessed Sex and Gender Information Value Date Recorded Sex Assigned at Not on file Gender Identity Not on file Sexual Orientation Not on file Plan of Treatment Not on file
--- OUTSIDE RECORDS SUMMARY | 2024-06-23 00:57 | XMS_ITS | Clinical Summary ---
Author Organization [facility] Address [address] [place] [address] Care Team Providers Care Deputy General Counsel Name Role Phone Unavailable Primary Care Provider [...]
[2024-06-23] MEDS: cefTRIAXone 2 GM/50 ML BAG IVPB (14:23)
[2024-06-23] MEDS: Normal Saline Flush 10 ML SYR IVP (14:29)
[2024-06-24] MEDS: cefTRIAXone 2 GM/50 ML BAG IVPB (14:05)
--- NOTE | 2024-06-24 15:33 | NUR.NOTE ---
Midline assessed prior to infusion, no blood return noted and dressing visibly soiled. After infusion ended dressing was changed, with bio patch replaced, in addition to stat lock. Area around midline insertion was noted to have dirt or foreign material, area was cleaned thoroughly with chloraprep and education was provided on keeping the site clean including the dressing. Education was also provided on signs and symptoms of infection at this time. after dressing was changed, midline patency was confirmed. patient tolerated well no complaints offered.
== END 2024-06-25 23:59 | disposition home or self-care (01) ==
LOC: INF 00:18
PROVIDERS: PCP Physician Assistant; Visit Provider Student in an Organized Health Care Education/Training Program
DX: M00.822 Arthritis due to other bacteria, left elbow (principal)
CPT/HCPCS: 96365; J0696

== ENCOUNTER 2024-07-06 03:19 | Outpatient (RCR) | payer MEDICAID, SELFPAY ==
[2024-06-25] MEDS: cefTRIAXone 2 GM/50 ML BAG IVPB (14:05)
[2024-06-26] MEDS: cefTRIAXone 2 GM/50 ML BAG IVPB (13:45)
[2024-06-26] MEDS: Normal Saline Flush 10 ML SYR IVP (13:45)
[2024-06-27] MEDS: Normal Saline Flush 10 ML SYR IVP (13:36)
[2024-06-27] MEDS: cefTRIAXone 2 GM/50 ML BAG IVPB (13:37)
[2024-06-28] MEDS: Normal Saline Flush 10 ML SYR IVP (13:45)
[2024-06-28] MEDS: cefTRIAXone 2 GM/50 ML BAG IVPB (13:45)
[2024-06-29] MEDS: Normal Saline Flush 10 ML SYR IVP (13:59)
[2024-06-29] MEDS: cefTRIAXone 2 GM/50 ML BAG IVPB (13:59)
[2024-06-30] MEDS: Normal Saline Flush 10 ML SYR IVP (13:33)
[2024-06-30] MEDS: cefTRIAXone 2 GM/50 ML BAG IVPB (13:33)
[2024-06-30 14:20] LABS: HCT 35.4 % (40.0-50.0); HGB 11.8 g/dL (13.5-17.5); MCH 32.4 pg (27.0-33.0); MCHC 33.3 % (32.0-36.0); MCV 97 fL (80-95); MPV 9.3 fL (8.0-11.0); Platelet Count 409 10^3/uL (130-400); RBC 3.64 10^6/uL (4.36-5.78); RDW 13.6 % (11.8-14.1); RDW-SD 49.1 fL; WBC 8.81 10^3/uL (4.4-10.8)
[2024-06-30 14:37] LABS: ALT 92 U/L (16-63); AST 123 U/L (15-37); Albumin 3.1 g/dL (3.4-5.0); Alkaline Phosphatase 181 U/L (46-116); Anion Gap 7.5 mmol/L (3-11); BUN 2 mg/dL (7-18); Bilirubin, Total 0.23 mg/dL (0.2-1.0); C-Reactive Protein 1.89 mg/dL (<or=0.5); CO2 29.5 mmol/L (21.0-32.0); CREATININE 0.8 mg/dL (0.70-1.30); Calcium 9.2 mg/dL (8.5-10.1); Chloride 99 mmol/L (98-107); Estimated GFR 115.45 (mL/min/1.73m2); Glucose 116 mg/dL (74-106); Potassium 3.3 mmol/L (3.5-5.1); Sodium 136 mmol/L (136-145); Total Protein 7.9 g/dL (6.4-8.2)
[2024-07-01] MEDS: cefTRIAXone 2 GM/50 ML BAG IVPB (13:45)
[2024-07-01] MEDS: Normal Saline Flush 10 ML SYR IVP (14:08)
[2024-07-02] MEDS: Normal Saline Flush 10 ML SYR IVP (12:16)
[2024-07-02] MEDS: cefTRIAXone 2 GM/50 ML BAG IVPB (12:16)
[2024-07-03] MEDS: cefTRIAXone 2 GM/50 ML BAG IVPB (13:34)
[2024-07-03] MEDS: Normal Saline Flush 10 ML SYR IVP (13:46)
[2024-07-04] MEDS: cefTRIAXone 2 GM/50 ML BAG IVPB (13:08)
[2024-07-04] MEDS: Normal Saline Flush 10 ML SYR IVP (13:08)
[2024-07-05] MEDS: cefTRIAXone 2 GM/50 ML BAG IVPB (13:15)
[2024-07-05] MEDS: Normal Saline Flush 10 ML SYR IVP (13:18)
[2024-07-06] MEDS: cefTRIAXone 2 GM/50 ML BAG IVPB (13:38)
[2024-07-06] MEDS: Normal Saline Flush 10 ML SYR IVP (13:38)
[2024-07-06] MEDS: Bacitracin 1 PACKET (13:50)
[2024-07-06 14:32] LABS: HCT 38.8 % (40.0-50.0); HGB 12.8 g/dL (13.5-17.5); MCH 32.4 pg (27.0-33.0); MCV 98 fL (80-95); MPV 9.1 fL (8.0-11.0); Platelet Count 267 10^3/uL (130-400); RBC 3.95 10^6/uL (4.36-5.78); WBC 10.77 10^3/uL (4.4-10.8)
[2024-07-06 14:45] LABS: ALT 95 U/L (16-63); AST 109 U/L (15-37); Albumin 3.4 g/dL (3.4-5.0); Alkaline Phosphatase 196 U/L (46-116); Anion Gap 8.2 mmol/L (3-11); BUN 3 mg/dL (7-18); Bilirubin, Total 0.38 mg/dL (0.2-1.0); C-Reactive Protein 0.86 mg/dL (<or=0.5); CO2 29.8 mmol/L (21.0-32.0); CREATININE 0.8 mg/dL (0.70-1.30); Calcium 9.3 mg/dL (8.5-10.1); Chloride 100 mmol/L (98-107); Estimated GFR 115.45 (mL/min/1.73m2); Glucose 92 mg/dL (74-106); Potassium 3.7 mmol/L (3.5-5.1); Sodium 138 mmol/L (136-145); Total Protein 8.2 g/dL (6.4-8.2)
== END 2024-07-24 23:59 | disposition home or self-care (01) ==
LOC: INF 03:19
PROVIDERS: PCP Physician Assistant; Visit Provider Student in an Organized Health Care Education/Training Program
DX: M00.821 Arthritis due to other bacteria, right elbow (principal)
CPT/HCPCS: 36415; 80053; 85027; 96365; 86140; J0696

== ENCOUNTER 2024-07-10 08:35 | Outpatient (CLI) | payer MEDICAID, SELFPAY ==
--- NOTE | 2024-07-10 08:30 | DI.RAD_ITS ---
Exam(s) XR ELBOW RT COMPLETE EXAM: XR ELBOW RT COMPLETE CLINICAL HISTORY: S/P ORIF R OLECRANON. TECHNIQUE: 2D digital imaging was performed. Three views. COMPARISON: CR XR ELBOW RT LIMITED from 05/25/[address] UPPER EXTREMITY RT W from 06/18/2024 FINDINGS: BONES: There is previously noted to be a screw in place in the proximal ulna for fixation of the olec ranon fracture fragment. The fracture is now displaced posteriorly and no longer transfixed by the s crew. There is also abnormal lucency around the distal aspect of the screw no bony destructive lesio n is seen. JOINTS: The elbow is normally aligned. joint effusion is seen. On a small bony fragment is noted in in the anterior joint. SOFT TISSUE: Marked soft tissue swelling at the olecranon. IMPRESSION: Displacement of the olecranon fracture fragment posteriorly, no longer transfixed by the screw. DATA REPOSITORY: RADIATION DOSE DELIVERED:
== END 2024-07-10 08:36 | disposition home or self-care (01) ==
LOC: DIORS 08:35
PROVIDERS: PCP Physician Assistant; Visit Provider Student in an Organized Health Care Education/Training Program
DX: S52.021D Displaced fracture of olecranon process without intraarticular extension of right ulna, subsequent encounter for closed fracture with routine healing (principal); X58.XXXD Exposure to other specified factors, subsequent encounter
CPT/HCPCS: 73080

== ENCOUNTER 2024-07-10 10:48 | Outpatient (CLI) | payer MEDICAID, SELFPAY ==
--- OUTSIDE RECORDS SUMMARY | 2024-07-10 10:50 | XMS_ITS | Clinical Summary ---
Author Organization [facility] Address [address] [place] [address] Care Team Providers Care Pulmonologist Name Role Phone Unavailable Primary Care Provider [...]
--- OUTSIDE RECORDS SUMMARY | 2024-07-10 10:50 | XMS_ITS | Referral Summary ---
Author Organization [facility] Address [address] [place] [address] Care Team Providers Care Auto Slip Cover Installer Name Role Phone Unavailable Primary Care Provider Unavailabl e Social History Tobacco Use Types Packs/Day Years Used Date Smoking Tobacco: Never Assessed Sex and Gender Information Value Date Recorded Sex Assigned at Not on file Gender Identity Not on file Sexual Orientation Not on file Plan of Treatment Not on file
--- OUTSIDE RECORDS SUMMARY | 2024-07-10 10:51 | XMS_ITS | Encounter Summary ---
Author Organization [facility] Address [address] [place] [id number] Care Team Providers Care Dietitian Chief Name Role Phone Unavailable Primary Care Provider Unavailabl e Encounter Details Date Type Department Care Team (Late st Contact Info) Description 07/02/2022 Lab Requisition [facility] Pathology & Laboratory Medicine - [facility] [address] [place] [address] Outr Resulting Lab, Provider Social History Tobacco [...] Surface Ag Negative Negative 07/03/2022 9:51 EDT [facility] Hep C Antibody Negative Negative 07/03/2022 9:51 EDT [facility] Hepatitis A Antibody, IgM Negative Negative 07/03/2022 9:51 EDT [facility] Comment:The results of this assay can be falsely lowered due to the consumption of Biotin. Hepatitis B Core Ab, Total Negative Negative 07/03/2022 9:51 EDT [facility] Blood VENOUS BLOOD / Unknown 07/01/2022 16:30 EDT 07/02/2022 18:06 EDT Provider Outr Resulting Lab CHEMISTRY & BLOOD GAS ORDERABLES [facility] [address] [place] [address] documented in this encounter Visit Diagnoses Not on filedocumented in this encounter
--- NOTE | 2024-07-10 14:45 | DI.CT_ITS ---
Exam(s) CT UPPER EXTREMITY RT WO EXAM: CT UPPER EXTREMITY RT WO CLINICAL HISTORY: pain, surgical planning, closed fracture rt olecranon process, S52.021A TECHNIQUE: Imaging Protocol: Axial computed tomography images with coronal and sagittal reformatted images were created and reviewed. CONTRAST MATERIAL: Noncontrast COMPARISON: CR XR ELBOW RT COMPLETE from 05/05/[address] UPPER EXTREMITY RT W from 06/18/2024 CR XR ELBOW RT COMPLETE from 07/10/2024 FINDINGS: Bones: The screw placed through the olecranon 10 May [address]. The olecranon fracture fragment is now comminuted with multiple small fragments and displaced posteriorly and superiorly wit h respect to the proximal ulna. There is also abnormal lucency around the threaded portion of the sc rew. No osteomyelitic changes are identified. There are mild degenerative changes of the elbow joint. There is some irregularity at the radial hea d and capitellum. There is some spurring at the coronoid process. Soft Tissues: Prominent posterior soft tissue swelling. Joint effusion. IMPRESSION: Olecranon fracture fragment is now displaced posteriorly and shows multiple comminuted fragments. Carly cency noted around threaded portion of screw consistent with loosening. RADIATION DOSE DELIVERED: Total DLP DATA REPOSITORY: All CT scans at this facility are submitted to the National Radiology Data Registry (NRDR) Dose Index Registry (DIR) with the [employer] (ACR). RADIATION OPTIMIZATION: All CT scans at this facility use at least one of these dose optimization te chniques: automated exposure control; mA and/or kV adjustment per patient size (includes targeted exa ms where dose is matched to clinical indication); or iterative reconstruction.
== END 2024-07-10 11:08 ==
LOC: DI 10:48
PROVIDERS: PCP Physician Assistant; Visit Provider Student in an Organized Health Care Education/Training Program
DX: S52.021D Displaced fracture of olecranon process without intraarticular extension of right ulna, subsequent encounter for closed fracture with routine healing (principal); X58.XXXD Exposure to other specified factors, subsequent encounter
CPT/HCPCS: 73200

== ENCOUNTER 2024-07-12 11:01 | Day surgery (SDC) | payer MEDICAID, SELFPAY ==
[2024-07-12] VITALS (20 sets, daily range): BP systolic 117–143; BP diastolic 79–109; PULSE 54–94; RESP 6–18; TEMP 36.3–36.6; O2SAT 89–100; BMI 25.3
--- NOTE | 2024-07-12 09:40 | W.PM.DSUDISC ---
Date of service: 07/12/24 Time of Service: 09:40 Discharge Plan Disposition Patient Disposition: Home Condition: Good Discharge Details Reason For Visit: ORIF/triceps repair Attending Provider: Pasquale Mathews Primary Care Provider: Larry Garcia Home Meds and New Rx's Prescriptions: New acetaminophen 500 mg tablet 1,000 mg PO TID Qty: 90 3RF ibuprofen 600 mg tablet 600 mg PO TID PRNQty: 90 3RF oxycodone 5 mg tablet 5 mg PO Q8H MDD 15mg PRN (Reason: pain) Qty: 10 0RF Continued cefadroxil 500 mg capsule 500 mg PO BID Qty: 56 0RF venlafaxine 37.5 mg capsule,extended release 24hr 37.5 mg PO DAILY Patient Comments: TAKE ONE CAPSULE BY MOUTH EVERY MORNING COMBINE WITH 150MG DOSE FOR TOTAL OF 187.5MG DAILY diazepam 5 mg Tablet 5 mg PO TID PRN PRNQty: 15 0RF acetaminophen 500 mg tablet 1,000 mg PO TID Qty: 90 0RF venlafaxine 150 mg Capsule,Extended Release 24hr 150 mg PO DAILY buprenorphine-naloxone [Suboxone] 8-2 mg Film 1 film sublingual DAILY Patient Comments: HALF DOSE a.m AND p.m. Discontinued ibuprofen 600 mg tablet 600 mg PO TID PRN (Reason: pain) Qty: 90 0RF Discharge Instructions Additional Instructions: ORIF Elbow/Triceps Repair Discharge Instructions Activity: You should stay in the sling and splint for the first 2 weeks. Gentle motion of the hand, wrist, and fingers is okay and encouraged after the first few days, but no repetitive activites nor heavy lifting. You may apply ice. Medications: - You should take Tylenol and Ibuprofen around the clock. - You have been prescribed Oxycodone for breakthrough pain. - Continue to take your antibiotic Cefadroxil 500mg twice a day. Dressings: - The splint should remain in place until your first follow-up visit in two weeks. Cover the splint to shower and avoid getting it wet. - You may use a sling for comfort but not necessary. - You may shower after 3 days while keeping the splint covered and dry. Referrals: Pasquale Mathews MD [ [facility] STAFF PHYSICIAN] - Equipment/Supplies: Splint and Sling Activity:: Elevate Remove Dressings/Wound Care:: Do Not Remove Shower/Bathe:: Cover Diet:: As Tolerated Discharge Orders Discharge Orders: Discharge Order (Routine); Ordered 07/12/24 Ordered By: Marlo Dobbs DS: Diagnosis Discharge Diagnosis (1) Closed fracture of right olecranon process: Status: Acute
[2024-07-12] MEDS: Acetaminophen 500 MG TAB 1000 MG PO (12:03)
[2024-07-12] MEDS: Celecoxib 200 MG CAP 400 MG PO (12:03)
--- NOTE | 2024-07-12 12:18 | ANES.PREOP_ITS ---
General Info Date of Service Date Performed: 07/12/24 Height: 5 ft 6 in Weight: 71.2 kg Body Mass Index (BMI): 25.3 Surgical Procedure: Operation Date: 07/12/24 13:25 Proposed Procedure Side Surgeon p Cat MARADIAGAF Right Pasquale Mathews MD s I&D of Elbow Pasquale Mathews MD Meds Allergies and Home Medications Allergies Allergy/AdvReac Type Severity Reaction Status Date / Time No Known Allergies Allergy Verified 07/12/24 11:48 Home Medication ?Medication ?Instructions ?Recorded buprenorphine 8 mg-naloxone 2 mg 1 film sublingual DAILY 12/20/21 sublingual film (Suboxone) venlafaxine 150 mg 150 mg PO DAILY 12/20/21 capsule,extended release 24 hr venlafaxine 37.5 mg 37.5 mg PO DAILY 06/20/24 capsule,extended release 24 hr acetaminophen 500 mg tablet 1,000 mg (2 x 500 mg) PO TID #90 06/22/24 tabs diazepam 5 mg tablet 5 mg PO TID PRN PRN #15 tabs 06/22/24 cefadroxil 500 mg capsule 500 mg PO BID #56 caps 07/04/24 acetaminophen 500 mg tablet 1,000 mg (2 x 500 mg) PO TID #90 07/12/24 tabs ibuprofen 600 mg tablet 600 mg PO TID PRN #90 tabs 07/12/24 oxycodone 5 mg tablet 5 mg PO Q8H PRN pain #10 tabs 07/12/24 Current Visit Medications: Current Medications Generic Name Dose Route Start Last Admin Trade Name Freq PRN Reason Stop Dose Admin Acetaminophen 1,000 mg 07/12/24 06:00 07/12/24 12:03 Acetaminophen 500 Mg Tab PO 07/12/24 23:59 1,000 mg PREOP SERENA Administration Acetaminophen 650 mg 07/12/24 09:39 Acetaminophen 325 Mg Tab PO 08/11/24 09:38 Q4H PRN PRN Celecoxib 400 mg 07/12/24 06:00 07/12/24 12:03 Celecoxib 200 Mg Cap PO 07/12/24 23:59 400 mg PREOP SERENA Administration Ringer's Solution 1,000 mls @ 80 mls/hr 07/12/24 06:00 IV 07/12/24 23:59 INFUSION SERENA Cefazolin Sodium/Dextrose 2 gm in 50 mls @ 100 mls/hr 07/12/24 06:00 Ancef Duplex IVPB 07/12/24 23:59 PREOP SERENA Tranexamic Acid/Sodium Chloride 1,000 mg in 100 mls @ 600 mls/hr 07/12/24 06:00 IVPB 07/12/24 23:59 PREOP SERENA IV Miscellaneous Supplies 1 each 07/12/24 06:00 Iv Access IV 07/12/24 23:59 DIRECTED SERENA Oxycodone HCl 5 mg 07/12/24 09:39 Oxycodone 5 Mg Tab PO 08/11/24 09:38 Q3H PRN PRN Pain Sodium Chloride 0 ml 07/12/24 06:00 Normal Saline Flush 10 Ml Syr IV 07/12/24 23:59 PRN PRN Sodium Chloride 0 ml 07/12/24 06:00 Normal Saline 10 Ml Vial IJ 07/12/24 23:59 DIRECTED PRN Sterile Water 0 ml 07/12/24 06:00 Water,Injection,Sterile 10 Ml Vial IJ 07/12/24 23:59 DIRECTED PRN PFSH Active Problems Active Problems: Problem Status Onset Code Septic arthritis of elbow, right Acute M00.9 Infection of right elbow Acute M00.9 Cellulitis of right elbow Acute L03.113 Closed fracture of right olecranon process Acute 05/05/24 S52.021A Medical History Medical History Comments:: Pt has abstained from alcohol for past 2 days. Very anxious. Surgical History Surgical History H/O hernia repair Tobacco Smoking/Tobacco Use Status: Current every day Tobacco Type: e-cigarettes Alcohol Alcohol Intake: current Alcohol intake frequency: 3 or more drinks per day Alcohol type: beer and hard liquor Substance Use Substance use: Current Sobriety Substance use type: does not use Vital Signs and Lab Results Vital Signs Most Recent Vital Signs in EMR: Most Recent Vital Signs Temp Pulse Resp BP Pulse Ox 36.6 C 77 18 135/94 H 98 07/12/24 11:07 07/12/24 11:07 07/12/24 11:07 07/12/24 11:07 07/12/24 11:07 Lab Results Blood Type / Crossmatch: No Data to Display Complete Blood Count: White Blood Count 10.77 10^3/uL (4.4-10.8) 07/06/24 14:05 Red Blood Count 3.95 10^6/uL (4.36-5.78) L 07/06/24 14:05 Hemoglobin 12.8 g/dL (13.5-17.5) L 07/06/24 14:05 Hematocrit 38.8 % (40.0-50.0) L 07/06/24 14:05 Platelet Count 267 10^3/uL (130-400) 07/06/24 14:05 Complete Metabolic Panel: Sodium 138 mmol/L (136-145) 07/06/24 14:05 Potassium 3.7 mmol/L (3.5-5.1) 07/06/24 14:05 Chloride 100 mmol/L (98-107) 07/06/24 14:05 Carbon Dioxide 29.8 mmol/L (21.0-32.0) 07/06/24 14:05 BUN 3 mg/dL (7-18) L 07/06/24 14:05 Creatinine 0.8 mg/dL (0.70-1.30) 07/06/24 14:05 Est GFR (CKD-EPI 2020) 115.45 (mL/min/1.73m2) 07/06/24 14:05 Magnesium 1.6 mg/dL (1.8-2.4) L 06/20/24 11:25 Calcium 9.3 mg/dL (8.5-10.1) 07/06/24 14:05 Albumin 3.4 g/dL (3.4-5.0) 07/06/24 14:05 Glucose 92 mg/dL (74-106) 07/06/24 14:05 C-Reactive Protein 0.86 mg/dL (<or=0.5) H 07/06/24 14:05 Liver Function Panel: Alanine Aminotransferase (ALT/SGPT) 95 U/L (16-63) H 07/06/24 1 4:05 Aspartate Amino Transf (AST/SGOT) 109 U/L (15-37) H 07/06/24 14 :05 Coagulation Panel: No Data to Display Cardiac Panel: No Data to Display Arterial Blood Gas: No Data to Display Venous Blood Gas: No Data to Display Pancreas Panel: No Data to Display Thyroid Panel: No Data to Display Infectious Disease: No Data to Display Blood Cultures: No Data to Display Toxicology Panel: No Data to Display Anesthesia Assessment and Plan Anesthesia History Personal History: No History of Anesthesia Complications Family History: No Family History of Anesthesia Complications Exercise Tolerance Exercise Tolerance: Metabolic Equivalents>4 Pertinent Negatives Pertinent Negatives: No Symptoms of GERD Cardiac & Pulmonary Exam Cardiac Exam: Normal S1/S2 Heart Sounds Pulmonary Exam: Clear Bilateral Breath Sounds Implantable Cardiac Device Does patient have a Pacemaker or an ICD?: No Airway Exam Known Difficult Airway: No Mallampati Class: 1 Mouth Opening: Normal (> 3cm) Thyromental Distance: Greater than 3 cm Neck Range of Motion: Full ROM Neck Circumference: Normal Teeth Condition: Normal Dentition ASA Classification ASA Score: ASA 2 Emergency Case?: No NPO Status NPO Status: NPO Clears >2 hours, Solids >8 hours Anesthesia Plan Resuscitation Status: Full Code Anesthesia Technique: General Anesthesia Airway Planned: LMA Monitors Used: Standard Monitors
[2024-07-12] MEDS: Lactated Ringers 1,000 ML 80 ML IV (12:20)
--- NOTE | 2024-07-12 12:30 | DI.RAD_ITS ---
Exam(s) XR ELBOW RT LIMITED EXAM: XR ELBOW RT LIMITED CLINICAL HISTORY: Closed fracture of right olecranon process. TECHNIQUE: 2D and realtime digital imaging was performed in the OR. COMPARISON: CR XR ELBOW RT COMPLETE from 07/10/2024 FINDINGS: Hard copy images show removal of the previously existing screw. The displaced olecranon fracture fr agment is now approximated to the remainder of the shaft. Please see procedure note for details. Fluoro time: 1.43 minutes RADIATION DOSE DELIVERED: shraddha Garza=1.63 mGy
[2024-07-12] MEDS: ceFAZolin 2 GM/50 ML BAG IVPB (13:05)
[2024-07-12] MEDS: TRANEXAMIC ACID/SOD. CHL. 1,000 MG/100 ML BAG 600 MG IVPB (13:20)
[2024-07-12] MEDS: Bupivacaine 0.5% Pres-Free W/EPI 30 ML VIAL (15:12)
[2024-07-12] MEDS: Bupivacaine 0.25% Pres-Free W/EPI 30 ML VIAL (15:12)
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
--- NOTE | 2024-07-12 16:44 | W.ANESPOSTOP ---
Postoperative Evaluation Date, Time and Location Date Performed: 07/12/24 Time Performed: 16:48 Patient Location: Day Surgery Unit Vital Signs Most Recent Imported Vital Signs: Most Recent Vital Signs Temp Pulse Resp BP Pulse Ox 36.5 C 70 11 L 137/99 H 99 07/12/24 16:37 07/12/24 16:36 07/12/24 16:36 07/12/24 16:36 07/12/24 16:36 Pain Score Most Recent Pain Score: Most Recent Pain Score Pain Level 4 07/12/24 16:37 Assessment Mental Status: Awake (Alert & Oriented to Patient Baseline) Airway and Respiratory Function: Patent airway with normal (patient baseline) respiratory exam Cardiovascular Function: Hemodynamically Stable Hydration Status: Adequately Hydrated Nausea & Vomiting: No Nausea or Vomiting Pain: Pain is tolerable per patient Peripheral Nerve Block: Patient did not receive a nerve block
== END 2024-07-12 17:40 | disposition home or self-care (01) ==
LOC: SUR 11:01
PROVIDERS: PCP Physician Assistant; Visit Provider Student in an Organized Health Care Education/Training Program
PROC: (CPT 25405; principal; 2024-07-12 13:15)
PROC: (CPT 25405; 2024-07-12 13:15)
DX: S52.021A Displaced fracture of olecranon process without intraarticular extension of right ulna, initial encounter for closed fracture (principal); M00.821 Arthritis due to other bacteria, right elbow; V29.39XA Other motorcycle (driver) (passenger) injured in unspecified nontraffic accident, initial encounter
CPT/HCPCS: 25405; 11043; 76000; 73070; J0690; J1100; J2250; J2405; J2704; J3010

== ENCOUNTER 2024-07-24 15:58 | Outpatient (CLI) | payer MEDICAID, SELFPAY ==
--- NOTE | 2024-07-24 14:30 | DI.RAD_ITS ---
Exam(s) XR ELBOW RT COMPLETE EXAM: XR ELBOW RT COMPLETE CLINICAL HISTORY: Revision ORIF. TECHNIQUE: 2D digital imaging was performed. Three views. COMPARISON: CR XR ELBOW RT COMPLETE from 07/10/2024 CR XR ELBOW RT LIMITED from 07/12/2024 FINDINGS: BONES: Stable alignment of olecranon on flexure. No acute fracture is present. No bony destructive l esion is seen. JOINTS: The elbow is normally aligned. No joint effusion is seen. SOFT TISSUE: Swelling around the olecranon. IMPRESSION: Stable fracture alignment. DATA REPOSITORY: RADIATION DOSE DELIVERED:
== END 2024-07-24 15:59 | disposition home or self-care (01) ==
LOC: DIORS 15:58
PROVIDERS: PCP Physician Assistant; Visit Provider Physician Assistant
DX: S52.021D Displaced fracture of olecranon process without intraarticular extension of right ulna, subsequent encounter for closed fracture with routine healing (principal); X58.XXXD Exposure to other specified factors, subsequent encounter
CPT/HCPCS: 73080

== ENCOUNTER 2024-08-21 15:35 | Outpatient (CLI) | payer MEDICAID, SELFPAY ==
--- NOTE | 2024-08-21 15:31 | DI.RAD_ITS ---
Exam(s) XR ELBOW RT LIMITED EXAM: XR ELBOW RT LIMITED CLINICAL HISTORY: eval repair of right olecranon frx. TECHNIQUE: 2D digital imaging was performed. Three views. COMPARISON: CT CT UPPER EXTREMITY RT WO from 07/10/2024 CR XR ELBOW RT COMPLETE from 07/10/2024 CR XR ELBOW RT LIMITED from 07/12/2024 CR XR ELBOW RT COMPLETE from 07/24/2024 FINDINGS: Mild interval increase in separation olecranon fracture fragment compared with previous exam. Marked posterior soft tissue swelling remains present. Joint effusion. Degenerative changes at elbow joint. IMPRESSION: Mild interval increase in separation of olecranon fracture fragment. DATA REPOSITORY: RADIATION DOSE DELIVERED:
== END 2024-08-21 15:36 | disposition home or self-care (01) ==
LOC: DIORS 15:35
PROVIDERS: PCP Physician Assistant; Visit Provider Student in an Organized Health Care Education/Training Program
DX: S52.021D Displaced fracture of olecranon process without intraarticular extension of right ulna, subsequent encounter for closed fracture with routine healing (principal); X58.XXXD Exposure to other specified factors, subsequent encounter; Z98.890 Other specified postprocedural states
CPT/HCPCS: 73070

== ENCOUNTER 2024-09-12 01:49 | Outpatient (CLI) | payer MEDICAID, SELFPAY ==
--- NOTE | 2024-09-12 13:25 | DI.RAD_ITS ---
Exam(s) XR TOE LT GREAT EXAM: XR TOE LT GREAT CLINICAL HISTORY: LT GREAT TOE PAIN,SWELLING,M79.675. TECHNIQUE: 2D digital imaging was performed. Three views. COMPARISON: No exams were available for comparison FINDINGS: BONES: No acute fracture is present. Small erosions seen at the medial aspect of 1st interphalangea l joint. JOINTS: No dislocation present. Mild degenerative changes, with mild joint space narrowing and minim al periarticular spurring at the 1st MTP joint. Joint space narrowing and periarticular spurring of the medial aspect of the interphalangeal joint of the great toe. SOFT TISSUE: Soft tissue swelling medial to the interphalangeal joint of the great toe. No foreign b jamarcus or gas collection. IMPRESSION: Soft tissue swelling at the medial interphalangeal joint of the great toe. Small bony erosions. The findings could indicate gout. DATA REPOSITORY: RADIATION DOSE DELIVERED:
== END 2024-09-12 02:09 ==
LOC: DI 01:49
PROVIDERS: PCP Physician Assistant; Visit Provider Physician Assistant
DX: M79.675 Pain in left toe(s) (principal)
CPT/HCPCS: 73660